=== PATIENT | female | born 2000 | race African-American/Black ===

== ENCOUNTER 2022-03-07 20:52 | Emergency (ER) | payer MEDICAID, SELFPAY ==
[2022-03-07 20:59] VITALS: BP 123/72; PULSE 87; RESP 20; TEMP 36.7; O2SAT 96; BMI 33.8
--- NOTE | 2022-03-07 21:28 | ED_ITS ---
HPI - Extremity Problem General Chief complaint: Unspecified Complaint, Adult Stated complaint: Ankle Swelling Time Seen by Provider: 03/07/22 21:19 History of Present Illness HPI Narrative: Patient is a 21-year-old woman who is 37 weeks with her 2nd baby. She today and yesterday noticed increased swelling over the left ankle with no other findings. She has no calf tenderness no shortness of breath no change in her urination no change in her and her blood pressure is normal. No similar problems previously. She otherwise feels well. Related Data Home Medications Medication Instructions Recorded Confirmed prenat.vits,rosette,[id number] 1 tab PO QDAY 03/05/22 03/07/22 Allergies Allergy/AdvReac Type Severity Reaction Status Date / Time No Known Allergies Allergy Verified 03/04/22 10:41 Review of Systems Status of ROS: Reports: 10 or more systems reviewed and unremarkable except as noted in History and below [facility] Social History Smoking Status: Never smoker Exam Narrative: Exam Narrative: EXAM GENERAL: Patient appears comfortable and well. EYES: No scleral icterus. LYMPH: No supraclavicular or cervical lymphadenopathy. SKIN: Visible skin seen during exam normal or with benign process only. EXT: No dependent lower extremity pedal edema. Trace edema noted around the right ankle no other acute abnormalities. HEART: Regular rate and rhythm with no murmurs, rubs, or gallops. LUNGS: Clear to auscultation bilaterally with no crackles or wheezes. ABD: Soft, non tender, non distended. Gravid uterus noted. PSYCH: Good eye contact, speech is not pressured. Const: Vital Signs, click to edit/add: Vital Signs - 24 hr 03/07/22 20:59 Temperature 98.0 F Pulse Rate [Right Pulse Oximeter] 87 Respiratory Rate 20 Blood Pressure [Le ft Upper Arm] 123/72 Pulse Oximetry 96 Course Vital Signs Vital signs: Initial Vital Signs Temperature 98.0 F 03/07/22 20:59 Temperature Source Temporal Artery Scan 03/07/22 20:59 Pulse Rate 87 03/07/22 20:59 Respiratory Rate 20 03/07/22 20:59 Blood Pressure 123/72 03/07/22 20:59 Blood Pressure Mean 89 03/07/22 20:59 Blood Pressure Position Sitting 07/01/22 20:59 Pulse Oximetry 96 03/07/22 20:59 Oxygen Delivery Method 03/07/22 20:59 Vital Signs Temperature 98.0 F 03/07/22 20:59 Pulse Rate 87 03/07/22 20:59 Respiratory Rate 20 03/07/22 20:59 Blood Pressure 123/72 03/07/22 20:59 Pulse Oximetry 96 03/07/22 20:59 Temperature 98.0 F 03/07/22 20:59 Pulse Rate 87 03/07/22 20:59 Respiratory Rate 20 03/07/22 20:59 Blood Pressure 123/72 03/07/22 20:59 Pulse Oximetry 96 03/07/22 20:59 Discharge Plan Discharge Clinical Impression: Patient Disposition: Home, Self-Care Condition: Stable Instructions: (ED) Additional Instructions: Leg elevation Continue current care Activity Level: No Restrictions Discharge Diet: Regular Prescriptions: No Action prenat.vits,rosette,[id number] Tablet 1 tab PO QDAY 0RF Follow Up/Referrals: Provider,Not a Local [Primary Care Provider] - Stand Alone Forms: MyHealth Info Instructions
[2022-03-07 21:30] VITALS: BP 128/75; PULSE 85; RESP 18; O2SAT 96
[2022-03-07 22:00] VITALS: BP 114/79; PULSE 85; RESP 18; O2SAT 99
[2022-03-07 22:11] VITALS: RESP 16; O2SAT 94
== END 2022-03-07 22:32 | disposition home or self-care (01) ==
LOC: ED 21:32
PROVIDERS: Emergency Provider Internal Medicine
DX: R22.42 Localized swelling, mass and lump, left lower limb (principal); Z3A.34 34 weeks gestation of pregnancy
CPT/HCPCS: 99282; 99283

== ENCOUNTER 2022-03-27 15:18 | Inpatient (IN) | payer MEDICAID, SELFPAY ==
[2022-03-27] VITALS (28 sets, daily range): BP systolic 111–142; BP diastolic 55–90; PULSE 74–123; RESP 16–20; TEMP 36.6–37.1; O2SAT 84–100; BMI 35.9
[2022-03-27] MEDS: AMPICILLIN 2 GM in 0.9 % SODIUM CHLORIDE Mini-bag 100 ML IVPB (14:57)
[2022-03-27] MEDS: LACTATED RINGERS 1000 ML 1,000 ML 125 ML IV (15:00)
[2022-03-27 15:54] LABS: SARS PCR* Negative SARS-CoV-2 (Negative)
--- NOTE | 2022-03-27 15:56 | W.PM.LDBA ---
Subjective History of Present Illness Date Seen: 03/27/22 Narrative: Patient is being admitted to Labor and Delivery for spontaneous onset of labor. She is a 21 year old at 40 1/7 weeks gestation. She began having irregular contractions this morning that woke her up from sleep. She tried going to work but the contractions increased in intensity but remained irregular. She presented to the center at about 1040 am. Initially she was 4/60/-2, on recheck 2 hours later she was 4-5/60/-1 with some bloody show. Patient lives nearby so she was offered to go home. 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 At 245 pm, patient report stronger, more regular contractions and was admitted to Labor and Delivery. Her membranes remain intact. Her full history and physical was dictated by ISAMAR Guan on 03/05. Please see this for details. OB Problem List: 1. Hx of vacuum delivery after 3 hrs of pushing 2. Hx of Granulomatous mastitis. Occasionally has it aspirated Plans to bottle feed 3. Hx of anxiety and depression, sas previously taken Fluoxetine and done therapy. 4. Hx of marijuana use. Positive at transfer visit. Repeat UDS negative. 5. Proteus UTI 11/12/21, <10 K mixed reny on 11/26/21 Repeat 12/05/21: Proteus, resistant to Macrobid. Prescribed cephalexin. LIT UC at 28 week visit - <10,000 gram negative rods, which is what proteus is. 6. Chiari Malformation, headaches prior to 7. Failed 1 hr glucose, 156; scheduling 3 hr OB - H&P: Exam Physical Exam: Vital signs: Temp Pulse Resp BP Pulse Ox 98.8 F 81 20 129/74 98 03/27/22 15:05 03/27/22 15:08 03/27/22 15:05 03/27/22 15:08 03/27/22 15:08 Constitutional: Constitutional: moderate distress (Breathing well through contractions) and cooperative Comments: coping well, calm between contractions. Routine HEENT Exam: Head: Present atraumatic Routine Neck Exam: Neck: Present full ROM Detailed Neck Exam: Thyroids: Comments: supple Routine Respiratory Exam: Respiratory: Present CTA bilaterally Routine Cardiovascular Exam: Cardiovascular: RRR Routine Abdominal Exam: Abdominal: Present soft Comments: Gravid Routine Exam: Perineum Description: Normal and Discharge (bloody show) Detailed Labor and Delivery Exam: Patient Gravid: yes Dilation (cm): 5 Effacement (%): 60 Cervix position: mid Consistency: medium Tachysystole: No Contraction intensity: Moderate Comments: Contractions every 2-5 minutes Fetus (Single): Station: -1 Routine Back/Spine/Pelvis Exam: Back/Spine: full ROM Routine Skin Exam: Present intact Routine Neurological Exam: Present alert and oriented X3 Routine Psychiatric Exam: Present normal affect and normal thought process OB - Problem Based A/P Additional Plan (1) Spontaneous onset of labor: Problem details: 21 yo at 40 1/7 weeks by LMP Patient is coping well with challenges of labor. Labor type: spontaneous, early labor Category 1 FHR pattern. Labor complicated by: GBS + status Status: Acute Plan: Plan: Continue with routine intrapartum cares as ordered, expectant management. Patient encouraged to be active/mobile, hydrate, and rest as needed to promote physiologic labor and . Patient plans for waterbirth, consent in chart. Hep C neg. Analgesic of choice avaliable if patient prefers. GBS prophylaxis per protocol. Anticipate . Delivery/Labor/Induction Plan Plan: expectant management
[2022-03-27 16:17] LABS: Amphetamine Screen Urine Negative (Negative); Barbiturate Screen Urine Negative (Negative); Benzodiazepines Screen Urine Negative (Negative); Cannabinoid Screen Urine Negative (Negative); Cocaine Screen Urine Negative (Negative); Methadone Screen Urine Negative (Negative); Methamphetamines Screen Urine Negative (Negative); Opiate Screen Urine Negative (Negative); Oxycodone Screen Urine Negative (Negative); Phencyclidine Screen Urine Negative (Negative); Tricyclic Antidepressant Urine Negative (Negative)
[2022-03-27] MEDS: AMPICILLIN 1 GM in 0.9 % SODIUM CHLORIDE Mini-bag 100 ML IVPB ×2 (18:58→22:43)
[2022-03-27] MEDS: fentaNYL 100 MCG/2 ML inj IVP (23:00)
--- NOTE | 2022-03-27 23:40 | PM.OBPNL ---
Pain Control Time Seen by Provider: 01:50 Date Seen: 03/28/22 Pain control: epidural Comments: Shakila is a that was admitted yesterday afternoon for spontaneous onset of labor. She initially labored with nitrous and in the tub. After subsequent exams of minimal change with urge to push, AROM was performed. Patient continued to labor in the tub and began to intermittently push with urge. After almost 1.5 hours of intermittent pushing with peak of contraction and urge, patient was examined and found to have cervix present. It was recommended she get out of tub to void and change position. She requested an epidural for pain. Just prior to placement of epidural, RN checked her cervix and found her to be 8/100/0 station w/ asynclitic OP position. After epidural was placed, she had repetative deep variables not improving with fluids or position changes. Cervix was unchanged but baby was LOP. Contractions Monitor mode: External Contraction frequency: 1 (1-4) Contraction pattern: Irregular Contraction intensity: Moderate Pelvic Exam Dilation (cm): 8 Effacement (%): 100 Station: 0 Fetus (Single) Amniotic Membrane Status: AROM status: Category ll Assessment and Plan Assessment: active labor Comments: Continue with routine intrapartum cares as ordered, expectant management. Start amnioinfusion for repetitive variables, 300 bolus followed by continuous rate. Patient encouraged to reposition frequently to promote physiologic labor and . Continue with epidural for analgesic of choice. GBS prophylaxis per protocol. Anticipate .
[2022-03-27] MEDS: ROPIVACAINE 0.2% 100 ml 100 ML 12 MG EPIDURAL (23:48)
[2022-03-27] MEDS: LIDOCAINE 2% (PF) 5 ML VIAL EPIDURAL (23:48)
[2022-03-28] VITALS (37 sets, daily range): BP systolic 92–141; BP diastolic 51–77; PULSE 73–116; RESP 16; TEMP 36.6–37.1; O2SAT 92–98
--- NOTE | 2022-03-28 00:03 | P.ANBPRC_ITS ---
[facility] Medical History (Updated 03/27/22 @ 16:18 by Katelynn Aquino CNM) Granulocytosis Social History Smoking Status: Never smoker Do you use any of these nicotine containing products: None Second hand tobacco smoke exposure: No How often do you have a drink containing alcohol: never How often do you have six or more drinks on one occasion: Never AUDIT-C Alcohol total score: 0 Non-prescribed substance use: denies use Meds Home Medications and Allergies Home Medications Medication Instructions Recorded Confirmed Type prenat.vits,rosette,[id number] 1 tab PO QDAY 03/05/22 03/27/22 History Allergies Allergy/AdvReac Type Severity Reaction Status Date / Time No Known Allergies Allergy Verified 03/18/22 14:44 Results Labs Labs: Laboratory Results - last 24 hr 03/27/22 03/27/22 14:01 15:58 Urine Opiates Screen Negative Ur Oxycodone Screen Negative Urine Methadone Screen Negative Ur Propoxyphene Screen Negative Ur Barbiturates Screen Negative U Tricyclic Antidepress Negative Ur Phencyclidine Scrn Negative Ur Amphetamines Screen Negative U Methamphetamines Scrn Negative U Benzodiazepines Scrn Negative Urine Cocaine Screen Negative U Marijuana (THC) Screen Negative SARS-CoV-2 (PCR) Negative SARS-CoV-2 Vital Signs Vital Signs: Last Vital Signs Temp 98.2 F 03/27/22 18:57 Pulse 110 H 03/27/22 23:59 Resp 18 03/27/22 18:57 BP 111/55 L 03/27/22 23:59 Pulse Ox 100 03/27/22 23:41 Weight: 89.04 kg Height: 157.48 cm Anesthesia Procedures Epidural Insertion Patient Location: OB Start Time: 23:10 Stop Time: 00:04 Start Date: 03/27/22 Stop Date: 03/28/22 Reason for Block: primary anesthetic Patient Position: sitting Performed By: Heron Watson Preanesthetic Checklist: IV checked, risks and benefits discussed, surgical consent, monitors and equipment checked, pre-op evaluation, timeout performed and anesthesia consent Prep: chlorhexidine gluconate Monitoring: blood pressure monitoring, secured entrance monitor, continuous pulse oximetry and heart rate Approach: midline Vertebral Space: lumbar (1-5) Epidural Technique: COLIN saline Needle Type: Tuohy needle Injection Technique: continuous shot Needle gauge: 17 Needle Length (cm): 10 cm Needle Insertion Depth (cm): 8 Catheter Gauge: 19 Catheter Type: multi-orifice Catheter at skin depth (cm): 12 Test Dose Result: negative and lidocaine 1.5% with epinephrine 1 to 200,000 Events: other
[2022-03-28] MEDS: LACTATED RINGERS 1000 ML 1,000 ML IV ×2 (03:53→04:06)
[2022-03-28] MEDS: AMPICILLIN 1 GM in 0.9 % SODIUM CHLORIDE Mini-bag 100 ML IVPB (04:06)
[2022-03-28] MEDS: OXYTOCIN 30 unit/500 ML in NS 30 UNIT/500 ML BAG 325 UNIT IVPB (05:04)
--- NOTE | 2022-03-28 05:30 | PM.OBPRCVD ---
Procedure Delivery date: 03/28/22 Procedure Done: Global Events: Other (GBS +) Intrapartal Events: Mod/Heavy Meconium Fluid (clear during labor, moderate meconium with delivery) Delivery augmentation: rupture of membranes Delivery monitor: external FHT, external uterine and internal uterine Route of delivery: Laceration description: None Estimated blood loss (mL): 400 Anesthesia type: Epidural Disposition: floor Narrative: The patient is a 21 year-old now P2022 admitted on 03/27/2022 at 40 Weeks, 1 Days gestation for spontaneous onset of labor.? Cervical exam on admission was 5 cm/60 % effaced/-1 station with membranes intact in vertex presentation.? Contractions were every 5+ minutes.? heart rate demonstrated a category 1 tracing.? AROM occurred at 2046 with clear fluid. ? Pitocin:? AMTSL only ? Labor onset:?03/27/221909 ? Complete:? 03/280 ? Pushing:?410 ? heart tones during second stage were reassuring throughout with occasional variable with good return to baseline and variability. ? Patient labor spontaneously, recurrent variable decelerations with good recovery. Tracing improved with amnioinfusion and positioning. AROM noted at 2046 AM with clear fluid. Patient complete at 0400 AM and pushing at 0410. of a viable female at 0450 AM. Vertex delivered OA. No nuchal cord or shoulder. Body delivered with gentle traction and without incident. Moderate meconium with delivery. passed to mothers abdomen with a vigorous cry. Cord was clamped and cut at > 5 minutes. APGARS were 9 at one minute and 9 at five minutes respectively. Mouth was bulb suctioned. Intact placenta with a 3 vessel cord delivered spontaneous at 0510AM. Fundus firm. Intact perineum. QBL 400 cc. Mother and baby stable; mother plans to bottlefeed. Infant weight pending. ? Placenta delivered spontaneously and complete at 0510 with a 3 vessel cord. ? Mother and infant were stable after delivery. ? Lacerations:? Intact ? Blood loss: 400 mL. Blood loss measurement type: QBL ? Sponge and needles counts are correct. [place] Infant Gender: Female presentation: vertex Placental Delivery Description: Spontaneous Cord Description: 3 Vessels OB Vag Delivery Procedures Additional Procedures ECV: No Cook Catheter Insertion: No NST: No D&C: No Laceration Repair: No Tubal Ligation : No Other: Yes (Amnioinfusion)
[2022-03-28] MEDS: DOCUSATE SODIUM 100 MG CAPSULE PO (12:12)
[2022-03-28] MEDS: ACETAMINOPHEN 500 MG TABLET 1000 MG PO (20:32)
[2022-03-29 01:33] VITALS: BP 114/76; PULSE 69; RESP 16; TEMP 36.6; O2SAT 98
[2022-03-29 05:37] VITALS: BP 113/79; PULSE 88; RESP 16; TEMP 36.8; O2SAT 96
[2022-03-29 07:15] VITALS: BP 138/90; PULSE 88; RESP 20; O2SAT 98
[2022-03-29] MEDS: IBUPROFEN 600 MG TABLET PO (07:20)
[2022-03-29] MEDS: MAG HYDROX/ALUMINUM HYD/SIMETH 30 ML ORAL.SUSP PO (07:28)
[2022-03-29 08:06] LABS: Hematocrit 30.5 % (33.0-51.0); Hemoglobin* 9.5 gm/dL (12.0-16.0); Mean Corpuscular HGB Conc 31 gm/dL (32-36); Mean Corpuscular Hemoglobin 24 pg (26-34); Mean Corpuscular Volume 76 fL (80-100); Platelet Count* 241 K/uL (140-440); White Blood Count* 13.34 K/uL (4.50-11.00)
--- NOTE | 2022-03-29 08:09 | PM.OBDSVD1 ---
DS: Providers Provider Date Seen: 03/29/22 Date of admission: 03/27/22 15:18 Primary care physician: Not a Local Provider Admitting Clinician: Katelynn Aquino CNM Consults: 03/27/22 14:11 Consult to Green Building Energy Engineer [CONS] Routine Comment: Reason for Consult:: Substance Abuse Screening Attending Physician on discharge: Katelynn Aquino CNM Date of Discharge: 03/29/22 DS: Diagnosis Discharge Diagnosis (1) care and examination immediately after delivery: Status: Acute (2) Status post vaginal delivery: Status: Acute (3) Gestational hypertension: Status: Acute Problem details: Noted in labor and (4) anemia: Status: Acute Exam Const: Vital Signs, click to edit/add: Vital Signs - 24 hr 03/28/22 12:00 03/28/22 16:46 03/28/22 20:28 Temperature 98.7 F 98.8 F 97.9 F Pulse Rate [Left P ulse Oximeter] 95 84 88 Respiratory Rate 16 16 16 Blood Pressure [Ri ght Arm] 119/72 131/70 122/77 Pulse Oximetry 98 97 96 03/29/22 01:33 03/29/22 05:37 Temperature 97.9 F 98.2 F Pulse Rate [Left P ulse Oximeter] 69 88 Respiratory Rate 16 16 Blood Pressure [Ri ght Arm] 114/76 113/79 Pulse Oximetry 98 96 Temperature 98.2 F 03/29/22 05:37 Temperature Source Oral 03/29/22 05:37 Pulse Rate 88 03/29/22 07:15 Respiratory Rate 20 03/29/22 07:15 Respiratory Effort Spontaneous 03/29/22 07:15 Respiratory Depth Normal 03/29/22 07:15 Respiratory Patter n 03/29/22 07:15 Blood Pressure 138/90 H 03/29/22 07:15 Blood Pressure Danielle n 106 03/29/22 07:15 Blood Pressure Pos ition Semi-Fowlers 03/29/22 07:15 Pulse Oximetry 98 03/29/22 07:15 Oxygen Delivery Me thod 03/29/22 07:15 WBC 13.34 K/uL (4.50- 11.00) H 03/29/22 07:58 RBC 4.00 m/uL (4.00-5 .20) 03/29/22 07:58 Hgb 9.5 gm/dL (12.0-1 6.0) L 03/29/22 07:58 Hct 30.5 % (33.0-51.0 ) L 03/29/22 07:58 MCV 76 fL (80-100) L 03/29/22 07:58 MCH 24 pg (26-34) L 03/29/22 07:58 MCHC 31 gm/dL (32-36) L 03/29/22 07:58 Plt Count 241 K/uL (140-440 ) 03/29/22 07:58 Urine Opiates Scre en Negative (Negati ve) 03/27/22 15:58 Ur Oxycodone Scree n Negative (Negati ve) 03/27/22 15:58 Urine Methadone Sc reen Negative (Negati ve) 03/27/22 15:58 Ur Propoxyphene Sc reen Negative (Negati ve) 03/27/22 15:58 Ur Barbiturates Sc reen Negative (Negati ve) 03/27/22 15:58 U Tricyclic Antide press Negative (Negati ve) 03/27/22 15:58 Ur Phencyclidine S crn Negative (Negati ve) 03/27/22 15:58 Ur Amphetamines Sc reen Negative (Negati ve) 03/27/22 15:58 U Methamphetamines Scrn Negative (Negati ve) 03/27/22 15:58 U Benzodiazepines Scrn Negative (Negati ve) 03/27/22 15:58 Urine Cocaine Scre en Negative (Negati ve) 03/27/22 15:58 U Marijuana (THC) Screen Negative (Negati ve) 03/27/22 15:58 SARS-CoV-2 (PCR) Negative SARS-CoV -2 (Negative) 03/27/22 14:01 Documenting provider has reviewed patient's vital signs: yes Common normals: no apparent distress, oriented x3, no limitations, healthy appearing, alert and well nourished HENMT: Common normals: normocephalic Head and scalp: normocephalic Eye: Common normals: PERRL Pupil: PERRL Neck & C-Spine: Common normals: full ROM and supple Chest: Common normals: inspection of chest normal Other: Breast exam: deferred Resp: Common normals: normal respiratory effort, no retractions and clear to auscultation bilaterally Auscultation: clear to auscultation bilaterally Cardio: Common normals: regular rate and regular rhythm Rate: regular rate Rhythm: regular rhythm GI: Common normals: Normal to inspection, nondistended, normoactive bowel sounds present, soft to palpation and non-tender Palpation: soft and tender Details: other (upper medial abdomen) : OB/external & speculum: Yes deferred Uterus palpation: other (The uterine fundus is involuting. ) Back & Pelvis: Common normals: thoracic and lumbar spine normal to inspection and thoraco-lumbar ROM normal Extremity: Common normals: normal to inspection and full ROM Neuro: Common normals: oriented x3, moves all extremities and gait normal Sensorium/orientation: alert Psych: Common normals: mental status grossly normal, thought process normal, affect normal, speech normal and activity/motor behavior normal Speech: normal speech Thought process: normal thought process Skin: Common normals: no rashes or lesions noted General skin exam: no rashes or lesions noted OB - DS: Summary Hospital Course Hospital Course: The patient is a 21 year old G 4 P 2021 at 40.2 weeks gestation that was admitted to the Center on 03/27/22 for spontaneous onset of labor. She had an uncomplicated vaginal delivery. She delivered a viable female . She is bottle feeding. the patient has done well. This morning she began having some upper abdominal pain, central. She reports it feels like gas pains or possible severe heartburn. She did not eat much during labor but reports she ate a bunch of food yesterday. She had a small BM this morning. Maalox given by RN and has noted some mild improvement shortly after. Does prefer to go home today, aware she should stay if pain does not improve. Labs drawn due to multiple elevated blood pressures during labor and now one for pre-e work-up. Patient encouraged to hydrate and ambulate today to encourage GI movement. Peripartum Data Infant delivery method: Vaginal Laceration description: None complications: none Needles Infant Gender: Female Status at Discharge Functional status at discharge: independent ambulation Overall status at discharge: patient is progressing back to baseline Time Spent with Patient Time attestation: Total time spent providing and/or coordinating discharge services: Time spent: Less than 30 minutes Discharge Plan Discharge Disposition: Home, Self-Care Date of Admission: 03/27/22 15:18 Attending Provider on Discharge: Katelynn Aquino Primary Care Provider: Provider,Not a Local Condition: Stable Anticipated Discharge Date/Time: 03/29/22 12:30 Discharge Medications: New acetaminophen 500 mg Tablet 1,000 mg PO Q6H PRN (Reason: pain/fever) Qty: 0 0RF docusate sodium 100 mg Capsule 100 mg PO DAILY Qty: 100 0RF ibuprofen 600 mg Tablet 600 mg PO Q6H PRNQty: 60 0RF ferrous sulfate [iron] 325 mg (65 mg iron) tablet 325 mg PO DAILY Qty: 60 1RF Continued prenat.vits,rosette,[id number] Tablet 1 tab PO QDAY 0RF Discharge Orders: Discharge Order (Routine); Ordered 03/29/22 Ordered By: Katelynn Aquino Patient Education: OB Vaginal/Bottle Feeding Activity Restrictions/Additional Instructions: Discharge instructions were reviewed with the patient including signs and symptoms of infection and home going medications. Start iron supplement for low hemoglobin post . Lifting Restrictions: n/a Do not drive while taking narcotic pain meds. Off Work or School for 6 weeks. Symptoms to report to doctor: -Bleeding that saturates more than one pad per hour ?-Passing clots larger than the size of a golf ball ?-Pain not relieved by prescribed medication ?-Fever above 100.4 degrees Fahrenheit ?-A foul vaginal odor ?-Difficulty in emotions, mood and functions ?-Thoughts of hurting yourself and/or ?-Painful, reddened area in your breast ?-Any drainage, redness or tenderness in your IV/epidural site ?-Severe headache that doesn't improve after taking medications ?-Changes in vision, including temporary loss of vision, blurred vision, and/or light sensitivity ?-Upper abdominal pain (usually under ribs on the right side) ?-Decrease in urination or painful, frequent urinating ?-Chest pain ?-Shortness of breath ?-Tenderness or pain with redness and/swelling in the calf(s) of your leg Follow Up with clinic at 2 and 6 weeks . consultation services are available to all mothers and babies for the first year after delivery.? To make an appointment, please call [phone]. Activity Level: No Restrictions Discharge Diet: Regular Follow Up Appointments: [facility] [Provider Group] (at 2 weeks and 6 weeks ) Forms: MyHealth Info Instructions
[2022-03-29 08:19] LABS: Slide Review Reflex No
[2022-03-29 08:23] LABS: Creatinine* 0.7 mg/dL (0.5-1.5); Estimated Glomerular Filt Rate 125 ml/min
[2022-03-29 08:24] LABS: Alanine Aminotransferase* 11 U/L (4-35); Aspartate Amino Transferase* 25 U/L (12-35); Blood Urea Nitrogen* 9 mg/dL (5-24)
[2022-03-29] MEDS: DOCUSATE SODIUM 100 MG CAPSULE PO (09:11)
[2022-03-29 12:00] VITALS: BP 117/78
== END 2022-03-29 12:43 | disposition home or self-care (01) | DRG 807 ==
LOC: OB OUT 15:19 → OB 15:19
PROVIDERS: Admitting Provider Advanced Practice Midwife; Visit Provider Advanced Practice Midwife
DX: O99.824 Streptococcus B carrier state complicating childbirth (principal); Z37.0 Single live birth; O99.344 Other mental disorders complicating childbirth; F32.A Depression, unspecified; F41.9 Anxiety disorder, unspecified; O77.0 Labor and delivery complicated by meconium in amniotic fluid; O13.5 Gestational [pregnancy-induced] hypertension without significant proteinuria, complicating the puerperium; O90.81 Anemia of the puerperium; D64.9 Anemia, unspecified; Z3A.40 40 weeks gestation of pregnancy
CPT/HCPCS: 01967; 36415; 80306; 82565; 84450; 84460; 84520; 85027; 87635; 99211; A9270; J0290; J2795; J3010; J7120

== ENCOUNTER 2022-05-15 12:09 | Outpatient (CLI) | payer MEDICAID, SELFPAY | END 2022-05-15 12:10 | disposition home or self-care (01) | LOC: NFLDREF 05-23 09:27 | PROVIDERS: Visit Provider Advanced Practice Midwife | DX: Z39.2 Encounter for routine postpartum follow-up (principal) | CPT/HCPCS: 87086; 87186 ==

== ENCOUNTER 2022-06-17 08:21 | Outpatient (CLI) | payer MEDICAID, SELFPAY | END 2022-06-17 08:22 | disposition home or self-care (01) | PROVIDERS: Visit Provider Obstetrics & Gynecology | DX: N39.0 Urinary tract infection, site not specified (principal) | CPT/HCPCS: 87086; 87491; 87591 ==

== ENCOUNTER 2022-12-10 09:27 | Outpatient (CLI) | payer MEDICAID, SELFPAY ==
[2022-12-10 09:56] LABS: Clue Cells No Clue Cells Seen (None Seen); Trichomonas No Trichomonas Seen (None Seen); Yeast No Yeast Seen (None Seen)
[2022-12-10 12:37] LABS: Chlamydia DNA Amplified* NOT DETECTED (No Detected); GC DNA Amplified* NOT DETECTED (No Detected)
== END 2022-12-10 09:28 | disposition home or self-care (01) ==
PROVIDERS: Visit Provider Obstetrics & Gynecology
DX: R10.2 Pelvic and perineal pain (principal); N89.8 Other specified noninflammatory disorders of vagina
CPT/HCPCS: 0353U; 87086; 87186; 87210; 87491; 87591

== ENCOUNTER 2023-04-06 08:16 | Outpatient (CLI) | payer MEDICAID, SELFPAY ==
--- NOTE | 2023-04-06 08:15 | CRLHL7_ITS ---
For Patients: As a result of the Century Cures Act, medical imaging exams and procedure reports are released immediately into your electronic medical record. You may view this report before your referring provider. If you have questions, please contact your health care provider. INDICATION: First trimester scan, establish dates. COMPARISON: None. TECHNIQUE: Real-time contreras-scale imaging of the pelvis was performed. FINDINGS: Sonographic imaging demonstrates a single living intrauterine gestation. The embryo demonstrates a regular cardiac rate measuring 166 beats per minute. The embryo`s crown-rump length measurement of 3.2 cm corresponds to a gestational age of 10 weeks 1 day with a sonographic due date of 11/01/2023. There is a normal-appearing yolk sac. There are no gross abnormalities noted within the embryo at this early state of development. The gestational sac has a normal appearance. There is no evidence of a perigestational hemorrhage. The amount of fluid within the sac appears appropriate for gestational age. The cervix is closed. The myometrium appears normal. The ovaries are of normal size. Corpus luteal cyst right ovary. There are no suspicious fluid collections noted in the cul-de-sac. IMPRESSION: Normal first trimester OB ultrasound exam. Gestational age calculated at 10 weeks 1 day with a sonographic due date of 11/01/2023. Dictated by Magdy Rodriguez MD @ 04/06/2023 9:48:00 AM (Electronically Signed)
== END 2023-04-06 08:17 | disposition home or self-care (01) ==
LOC: US 08:17
PROVIDERS: Visit Provider Advanced Practice Midwife
DX: Z34.91 Encounter for supervision of normal pregnancy, unspecified, first trimester (principal); Z3A.10 10 weeks gestation of pregnancy
CPT/HCPCS: 76817

== ENCOUNTER 2023-05-04 09:33 | Outpatient (CLI) | payer MEDICAID, SELFPAY ==
[2023-05-04 12:54] LABS: Chlamydia DNA Amplified* NOT DETECTED (No Detected); GC DNA Amplified* NOT DETECTED (No Detected)
== END 2023-05-04 09:34 | disposition home or self-care (01) ==
PROVIDERS: Visit Provider Advanced Practice Midwife
DX: Z34.81 Encounter for supervision of other normal pregnancy, first trimester (principal)
CPT/HCPCS: 80306; 86592; 86703; 86762; 86787; 86803; 86850; 86900; 86901; 87086; 87340; 87491; 87591

== ENCOUNTER 2023-06-25 15:25 | Outpatient (CLI) | payer MEDICAID, SELFPAY | END 2023-06-25 15:26 | disposition home or self-care (01) | LOC: NFLDREF 06-28 17:56 | PROVIDERS: Visit Provider Advanced Practice Midwife | DX: R30.9 Painful micturition, unspecified (principal) | CPT/HCPCS: 87086; 87186 ==

== ENCOUNTER 2023-07-01 07:30 | Outpatient (CLI) | payer MEDICAID, SELFPAY ==
--- NOTE | 2023-07-01 07:15 | CRLHL7_ITS ---
For Patients: As a result of the Century Cures Act, medical imaging exams and procedure reports are released immediately into your electronic medical record. You may view this report before your referring provider. If you have questions, please contact your health care provider. INDICATION: Evaluate anatomy. COMPARISON: 04/06/2023 TECHNIQUE: Real time contreras scale imaging of the fetus was performed as well as color Doppler analysis of the umbilical vessels. FINDINGS: Sonographic imaging demonstrates a single living intrauterine gestation. Fetus demonstrates a regular cardiac rate of 141 beats per minute. Fetus has a breech position. The placenta lies anteriorly without evidence of placenta previa. The placental edge is located 9 cm from the internal cervical os. Amniotic fluid volume appears normal. Single deepest vertical pocket: 3.3 cm. The cervix is closed and measures 4.8 cm in length. The composite ultrasound gestational age is calculated at 22 weeks 1 day with an estimated sonographic due date of 11/03/2023. The estimated weight is 459 grams which lies at the 31st %. The following biometric measurements were obtained: Biparietal diameter: 5.4 cm/22 weeks 2 days 53rd% Head circumference: 20.5 cm/22 weeks 4 days 56th% Abdominal circumference: 16.2 cm/21 weeks 2 days 17th% Femur length: 3.9 cm/22 weeks 3 days 49th% The HC/AC ratio measures: 1.26 range (1.05-1.23) On anatomic survey, there is a normal appearance of the cerebral ventricles, cavum septi pellucidi, cisterna magna and cerebellum. The nose, lips, and facial profile appear normal. The cervical, thoracic and lumbar spine are well visualized and appear normal. There is a normal four-chamber heart view and the left and right ventricular outflow tracts appear normal. The diaphragm and stomach appear normal. The kidneys and bladder also appear normal. There is a normal three-vessel cord and cord insertion site. The four extremities appear normal. IMPRESSION: Normal OB ultrasound exam with concordance of clinical and sonographic dating. No intrinsic abnormalities noted on anatomic survey. Dictated by Magdy Rodriguez MD @ 07/03/2023 6:07:48 AM (Electronically Signed)
== END 2023-07-01 07:31 | disposition home or self-care (01) ==
LOC: US 07:31
PROVIDERS: Visit Provider Advanced Practice Midwife
DX: Z34.92 Encounter for supervision of normal pregnancy, unspecified, second trimester (principal); Z3A.21 21 weeks gestation of pregnancy
CPT/HCPCS: 76805

== ENCOUNTER 2023-08-13 10:10 | Outpatient (CLI) | payer MEDICAID, SELFPAY | END 2023-08-13 10:11 | disposition home or self-care (01) | LOC: NFLDREF 10:11 | PROVIDERS: Visit Provider Advanced Practice Midwife | DX: O23.42 Unspecified infection of urinary tract in pregnancy, second trimester (principal); Z11.3 Encounter for screening for infections with a predominantly sexual mode of transmission | CPT/HCPCS: 86592; 87086 ==

== ENCOUNTER 2023-08-17 08:59 | Outpatient (CLI) | payer MEDICAID, SELFPAY ==
[2023-08-17] VITALS (21 sets, daily range): BP systolic 110–121; BP diastolic 54–68; PULSE 93–112; RESP 20; TEMP 36.8; O2SAT 97–98
[2023-08-17 10:01] LABS: Hematocrit 33.5 % (33.0-51.0); Hemoglobin* 11.3 gm/dL (12.0-16.0); Mean Corpuscular HGB Conc 34 gm/dL (32-36); Mean Corpuscular Hemoglobin 30 pg (26-34); Mean Corpuscular Volume 90 fL (80-100); Platelet Count* 211 K/uL (140-440); Red Blood Count 3.72 m/uL (4.00-5.20); White Blood Count* 6.62 K/uL (4.50-11.00)
[2023-08-17 10:03] LABS: Slide Review Reflex No
[2023-08-17] MEDS: ACETAMINOPHEN 500 MG TABLET 1000 MG PO (10:10)
[2023-08-17 10:18] LABS: Alanine Aminotransferase* 16 U/L (4-35); Aspartate Amino Transferase* 27 U/L (12-35); Blood Urea Nitrogen* 3 mg/dL (5-24); Creatinine* 0.4 mg/dL (0.5-1.5); Estimated Glomerular Filt Rate 143 ml/min
[2023-08-17 10:29] LABS: Total Protein Urine 21 mg/dL
[2023-08-17 10:30] LABS: Creatinine Urine 42.2 mg/dL
[2023-08-17 10:36] LABS: PCR FLU A POSITIVE PCR FLU A (Negative); PCR FLU B Negative PCR FLU B (Negative); PCR RSV Negative PCR RSV (Negative)
[2023-08-17 10:37] LABS: SARS PCR* Negative SARS-CoV-2 (Negative)
--- NOTE | 2023-08-17 12:45 | PC.OBNST ---
NST Note NST Note Start: 08/17/23 09:08 Freq: ONCE Status: Discharge Protocol: Document 08/17/23 11:46 SURI (Rec: 08/17/23 12:19 SURI [id number]) NST Note 5 Para (# of births) 2 EDC 11/03/23 Gestational Age In Weeks & Days 28 Weeks & 6 Days Patient Presented with Complaint(s) of Headache,Other Other Complaints Headache and RUQ pain unrelieved with Tylenol. Cold /flu symptoms. Reactive Yes Appropriate for Gestational Age Yes ARASELI Nole, RNC Date 08/17/23 Reactive Yes Appropriate for Gestational Age Yes ARASELI Sullivan, RNC Date 08/17/23 OB NST charge Yes Complete NST Note via Write Note Yes The provider's electronic signature indicates the NST is reactive/appropriate for gestational age. *Note to provider: If an addendum is required, open the patient's chart and click on the note under the Nurse/Allied Health tab.
--- NOTE | 2023-08-17 13:01 | PM.OBLDTN ---
OB - Triage/Final Diagnosis Visit Information Date Seen: 08/17/23 Date of evaluation: 08/17/23 Narrative: The patient is a 22 year old 5 para 2 at 28.6 weeks gestation by LMP, who called earlier today with a headache that was not relieved with rest, hydration and Tylenol. She presents to triage with this plus generally not feeling well since Thursday. Blood pressures on admission and throughout her stay were normal. Preeclampsia labs were drawn as well as testing her for Flu and covid. She was found to be positive for influenza A. She was sent a prescription for Tamiflu was sent and she was encourage to use OTC for symptom relief. She was given the OTC safe in handout and feels that she is able to hydrate on her own. She was given precautions of when to return. She denies contractions or leaking fluid and is appreciating good movement. Reason for evaluation: other Evaluation Laboratory results: Laboratory Tests 08/17/23 08/17/23 Range/Units Unknown 09:50 WBC 6.62 (4.50-11.00) K/uL RBC 3.72 L (4.00-5.20) m/uL Hgb 11.3 L (12.0-16.0) gm/dL Hct 33.5 (33.0-51.0) % MCV 90 (80-100) fL MCH 30 (26-34) pg MCHC 34 (32-36) gm/dL Plt Count 211 (140-440) K/uL BUN 3 L (5-24) mg/dL Creatinine 0.4 L (0.5-1.5) mg/dL Estimated GFR 143 ml/min AST 27 (12-35) U/L ALT 16 (4-35) U/L Urine Creatinine 42.2 mg/dL Protein/Creatinin Ratio 0.40 H (0-0.19) Urine Total Protein 21 mg/dL SARS-CoV-2 (PCR) Negative SARS-CoV-2 (Negative) Influenza Type A (PCR) POSITIVE PCR FLU A A (Negative) Influenza Type B (PCR) Negative PCR FLU B (Negative) RSV (PCR) Negative PCR RSV (Negative) Vital signs: Vital Signs - 24 hr 08/17/23 09:14 08/17/23 09:30 08/17/23 09:44 Temperature 98.2 F Pulse Rate 100 93 102 H Respiratory Rate 20 Blood Pressure 120/65 121/65 113/64 Pulse Oximetry 08/17/23 09:59 08/17/23 10:14 08/17/23 10:29 Temperature Pulse Rate 103 H 111 H 109 H Respiratory Rate Blood Pressure 115/65 110/67 117/68 Pulse Oximetry 08/17/23 10:44 08/17/23 10:50 08/17/23 10:55 Temperature Pulse Rate 103 H Respiratory Rate Blood Pressure 118/66 Pulse Oximetry 98 98 08/17/23 10:59 08/17/23 11:00 08/17/23 11:05 Temperature Pulse Rate 107 H Respiratory Rate Blood Pressure 120/54 L Pulse Oximetry 98 98 08/17/23 11:10 08/17/23 11:14 08/17/23 11:15 Temperature Pulse Rate 105 H Respiratory Rate Blood Pressure 113/58 L Pulse Oximetry 98 98 08/17/23 11:20 08/17/23 11:25 08/17/23 11:29 Temperature Pulse Rate 96 Respiratory Rate Blood Pressure 113/58 L Pulse Oximetry 97 98 08/17/23 11:30 08/17/23 11:35 08/17/23 11:40 Temperature Pulse Rate Respiratory Rate Blood Pressure Pulse Oximetry 98 97 97 Final Diagnosis (1) Influenza A: Status: Acute (2) : Status: Resolved
== END 2023-08-17 12:40 | disposition home or self-care (01) ==
LOC: OB OUT 09:00 → OB 09:00
PROVIDERS: Visit Provider Advanced Practice Midwife
DX: Z34.93 Encounter for supervision of normal pregnancy, unspecified, third trimester (principal); J10.1 Influenza due to other identified influenza virus with other respiratory manifestations; Z3A.28 28 weeks gestation of pregnancy
CPT/HCPCS: 36415; 59025; 82565; 82570; 84156; 84450; 84460; 84520; 85027; 87631; 99213; A9270

== ENCOUNTER 2023-08-26 08:05 | Outpatient (CLI) | payer MEDICAID, SELFPAY | END 2023-08-26 08:06 | disposition home or self-care (01) | LOC: NFLDREF 09:23 | PROVIDERS: Visit Provider Advanced Practice Midwife | DX: R73.09 Other abnormal glucose (principal) | CPT/HCPCS: 82951; 82952 ==

== ENCOUNTER 2023-08-28 21:47 | Outpatient (CLI) | payer MEDICAID, SELFPAY | END 2023-08-28 21:48 | disposition home or self-care (01) | PROVIDERS: Visit Provider Advanced Practice Midwife | DX: O23.40 Unspecified infection of urinary tract in pregnancy, unspecified trimester (principal); R80.9 Proteinuria, unspecified | CPT/HCPCS: 82570; 84156 ==

== ENCOUNTER 2023-10-08 14:46 | Outpatient (CLI) | payer MEDICAID, SELFPAY | END 2023-10-08 14:47 | disposition home or self-care (01) | LOC: NFLDREF 14:47 | PROVIDERS: Visit Provider Advanced Practice Midwife | DX: Z34.83 Encounter for supervision of other normal pregnancy, third trimester (principal); F12.90 Cannabis use, unspecified, uncomplicated | CPT/HCPCS: 80306; 87081; 87653 ==

== ENCOUNTER 2023-11-04 07:08 | Inpatient (IN) | payer MEDICAID, SELFPAY ==
[2023-11-04] VITALS (71 sets, daily range): BP systolic 103–131; BP diastolic 54–82; PULSE 67–115; RESP 16; TEMP 36.3–36.8; O2SAT 80–100; BMI 33.0
--- NOTE | 2023-11-04 07:26 | W.PM.LDBA ---
Documented by User: Tamika Guan, ISAMAR 11/04/23 07:46 Subjective History of Present Illness Specific Issues/Plans SO: Severino H&P done by Bryanna Garza on 10/15/23 1. Hx of vacuum delivery after 3 hrs of pushing 2. Hx of Granulomatous mastitis. Occasionally has it aspirated 3. Hx of anxiety and depression, has previously taken fluoxetine and done therapy. Nothing currently. 4. Hx of marijuana use. Random UDS: + THC 5. Chiari Malformation, headaches prior to 6. Hx gestational hypertension last . Will start ASA. 7. Positive for marijuana at NOB at 17 weeks (2nd trimester). Repeat 36 weeks (3rd trimester): negative 8. UTI in treated 06/26 UC on 08/13-neg 9. Elevated PC ratio in triage. Also diagnosed with the flu at that time. Will do 24 hour urine:normal, P/C ratio 0.0 10. Failed 1 hour GTT, 3 hr WNL COVID: booster 07/01 Flu: given 07/01 TDAP: 08/27/2023 32wk mental health: 09/10/2023 RSV: 10/08/23 OB - Problem Based A/P Additional Plan (1) Pain during labor: Status: Acute Plan ASSESSMENT:? G[]P[] at [] weeks gestation? GBS []? Uncomplicated ? Elevated BP on admit? Postterm IOL? ?? PLAN:? 1. [Antibiotic prophylaxis treatment per protocol]? 2. Reviewed risks and benefits of IOL with pitocin vs cytotec. Pt prefers cytotec. Pitocin to follow if needed.? 3. Desires water . Consent signed. Hep C negative.? 4. Candidate for analgesia of choice. Planning unmedicated .? 5. Monitor blood pressures. Consider labs if continue to be elevated.? 6. Anticipate ? 7. Expectant management at this time.? 8. IV and monitoring plan? ? OB Exam Physical Exam Narrative: Psychiatric:? Alert and oriented x3? HEENT:? Normocephalic, atraumatic? Neck:? Supple without adenopathy or thyromegaly? Lungs:? Clear to auscultation bilaterally? Heart:? Regular rate and rhythm, no murmur, rub or gallop? Abdomen:? Soft, nontender, and gravid? Extremities:? No edema or erythema? Documented by User: Marissa Justin 11/04/23 07:46 Subjective History of Present Illness Time Seen by Provider: 07:26 Date Seen: 11/04/23 Narrative: Patient is being admitted to Labor and Delivery with regular painful contractions since 4 am this morning. She is breathing through them and requesting for epidural. She is a 23 year old at 40.1 weeks gestation. Her full history and physical was dictated by Bryanna Garza CNM on 10/15/2023. Please see this for details. She is gaurav every 3-4 min. FHT is category II with 125 baseline, moderate variability and occasional variables. There is also audible irregular heart beat. Planning for peds to attend delivery. No hx of heart concerns in the records. UDS is colllected on admission for hx of drug use in preg. GBS is negative. Type and screen is also collected. Specific Issues/Plans SO: Severino H&P done by Bryanna Garza on 10/15/23 1. Hx of vacuum delivery after 3 hrs of pushing 2. Hx of Granulomatous mastitis. Occasionally has it aspirated 3. Hx of anxiety and depression, has previously taken fluoxetine and done therapy. Nothing currently. 4. Hx of marijuana use. Random UDS: + THC 5. Chiari Malformation, headaches prior to 6. Hx gestational hypertension last . Will start ASA. 7. Positive for marijuana at NOB at 17 weeks (2nd trimester). Repeat 36 weeks (3rd trimester): negative 8. UTI in treated 06/26 UC on 08/13-neg 9. Elevated PC ratio in triage. Also diagnosed with the flu at that time. Will do 24 hour urine:normal, P/C ratio 0.0 10. Failed 1 hour GTT, 3 hr WNL COVID: booster 07/01 Flu: given 07/01 TDAP: 08/27/2023 32wk mental health: 09/10/2023 RSV: 10/08/23 OB - Problem Based A/P Additional Plan (1) Pain during labor: Status: Acute Plan ASSESSMENT:? at 40.1 weeks gestation Active labor FHT- Category II tracing with audible irregular heart beat Membrane intact ? GBS Negative Uncomplicated ? ?? PLAN:? 1. Requesting Epidural ? 2. Collect UDS 3 Anticipate ? 4. Expectant management at this time.? 5. Continuous monitoring for concern for heart irregularity 6. Plan to have Peds attend [facility] Delivery/Labor/Induction Plan Plan: expectant management OB Result Labs Blood Type: A (+) positive GBS Status: negative OB Exam Physical Exam Vital signs: Pulse BP Pulse Ox 80 106/59 L 100 11/04/23 06:41 11/04/23 06:41 11/04/23 07:04
[2023-11-04] MEDS: LACTATED RINGERS 1000 ML 1,000 ML 1200 ML IV (07:28)
[2023-11-04 07:45] LABS: Basophils Percent Auto 0.1 % (0.0-3.0); Eosinophils Percent Auto 0.2 % (0.0-7.0); Hemoglobin* 10.7 gm/dL (12.0-16.0); Immature Granulocytes Pct Auto 0.4 %; Lymphocytes Percent Auto 13.5 % (20-44); Mean Corpuscular HGB Conc 32 gm/dL (32-36); Mean Corpuscular Hemoglobin 25 pg (26-34); Mean Corpuscular Volume 79 fL (80-100); Monocytes Percent Auto 6.6 % (0.0-11.0); Neutrophils Percent Auto 79.2 % (42.0-72.0); Platelet Count* 250 K/uL (140-440); Red Blood Count 4.28 m/uL (4.00-5.20); White Blood Count* 14.19 K/uL (4.50-11.00)
[2023-11-04 07:48] LABS: Slide Review Reflex No
[2023-11-04] MEDS: ROPIVACAINE 0.2% 100 ml 100 ML 12 MG EPIDURAL (08:12)
--- NOTE | 2023-11-04 08:16 | P.ANBPRC_ITS ---
[facility] Medical History Anxiety ?F41.9 - Anxiety disorder, unspecified (ICD-10) Depression ?F32.A - Depression, unspecified (ICD-10) Chiari malformation anemia ?O90.81 - Anemia of the puerperium (ICD-10) Gestational hypertension ?O13.9 - Gestational [-induced] hypertension without significant proteinuria, unspecified trimester (ICD-10) Eating disorder ?F50.9 - Eating disorder, unspecified (ICD-10) Migraines ?G43.909 - Migraine, unspecified, not intractable, without status migrainosus (ICD-10) Granulocytosis ?D72.828 - Other elevated white blood cell count (ICD-10) Surgical History Status post vaginal delivery [place] teeth extracted ?K08.409 - Partial loss of teeth, unspecified cause, unspecified class (ICD- 10) Family History Paternal Grandmother Breast cancer Father Autism Social History Narrative: SOCIAL Education: trade 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 They occasionally have his 7 and 4 year olds as well. Pets: none Abuse: Denies past/present Special Diet: Denies Ok with a blood transfusion: yes Culture or faith beliefs: denies RISK FACTORS Exercise Times/wk: Just chasing my children. Encouraged walks. Depression/Anxiety: feeling good, denies concerns DUNIA: 0 PHQ 9: 2 Seat Belt Use: Routinely Smoking: Denies past/present Alcohol/day: Denies while Caffeine: 1-2 per day Drug Use: Occasional THC use. Plans on stopping in the 2nd trimester as she has in the past. Chicken Pox: vaccinated MRSA: Denies What is your current living situation?: I presently have a place to live Problems where you live: water leaks Problems where you live details: recently bought a house In the past 12 months, utilities in danger of being shut off: yes In past 12 months, lack of transportation kept you from medical appts, meetings, work, or getting things needed for daily living: no In the past 12 mos, have been you worried that your food would run out before you had money to buy more?: sometimes true In the past 12 mos, the food you bought just didn't last and you didn't have money to buy more?: sometimes true Smoking Status: Never smoker Do you use any of these nicotine containing products: None Second hand tobacco smoke exposure: No How often do you have a drink containing alcohol: never How often do you have six or more drinks on one occasion: Never AUDIT-C Alcohol total score: 0 Non-prescribed substance use: denies use How often does anyone, including family, friends and others, physically hurt you : never How often does anyone, including family, friends and others, insult or talk down to you: never How often does anyone, including family, friends and others, threaten you with harm: never How often does anyone, including family, friends and others, scream or curse at you: never Little interest or pleasure in doing things: not at all Feeling down, depressed, or hopeless: not at all Meds Home Medications and Allergies Home Medications Medication Instructions Recorded Confirmed Type docosahexaenoic acid 200 mg 1 mg PO QDAY 04/06/23 10/29/23 History capsule ( DHA) Allergies Allergy/AdvReac Type Severity Reaction Status Date / Time No Known Allergies Allergy Verified 10/29/23 12:48 Results Labs Labs: Laboratory Results - last 24 hr 11/04/23 11/04/23 07:29 08:06 WBC 14.19 H RBC 4.28 Hgb 10.7 L Hct 34.0 MCV 79 L MCH 25 L MCHC 32 RDW Coeff of Ivon 16.0 H Plt Count 250 Neut % (Auto) 79.2 H Lymph % (Auto) 13.5 L Greeley % (Auto) 6.6 Eos % (Auto) 0.2 Baso % (Auto) 0.1 Neut # (Auto) 11.20 H Lymph # (Auto) 1.90 Greeley # (Auto) 0.90 Eos # (Auto) 0.00 Baso # (Auto) 0.00 Abs Immat Gran (auto) 0.10 Imm/Tot Granulo (auto) 0.4 Ur Drug Screen Comment See Note Vital Signs Vital Signs: Last Vital Signs Temp 98.2 F 11/04/23 07:39 Pulse 96 11/04/23 08:16 Resp 16 11/04/23 07:39 BP 124/76 11/04/23 08:16 Pulse Ox 100 11/04/23 08:14 Anesthesia Procedures Epidural Insertion Patient Location: OB Start Time: 07:45 Stop Time: 08:16 Start Date: 11/04/23 Stop Date: 11/04/23 Reason for Block: procedure for pain Patient Position: sitting Performed By: Alexandro Pryor Preanesthetic Checklist: IV checked, risks and benefits discussed, monitors and equipment checked, pre-op evaluation, timeout performed and anesthesia consent Prep: chlorhexidine gluconate Monitoring: blood pressure monitoring, continuous pulse oximetry and heart rate Approach: midline Vertebral Space: lumbar (1-5) Epidural Technique: COLIN saline Needle Type: Tuohy needle Injection Technique: continuous catheter Needle gauge: 17 Needle Length (cm): 10 cm Needle Insertion Depth (cm): 7 Catheter Gauge: 19 Catheter Type: multi-orifice Catheter at skin depth (cm): 13 Test Dose Result: negative and lidocaine 1.5% with epinephrine 1 to 200,000
[2023-11-04] MEDS: PHENYLEPHRINE 100 MCG/ML SYRINGE IVP (08:20)
[2023-11-04 08:24] LABS: Amphetamine Screen Urine Negative (Negative); Barbiturate Screen Urine Negative (Negative); Benzodiazepines Screen Urine Negative (Negative); Cannabinoid Screen Urine Negative (Negative); Cocaine Screen Urine Negative (Negative); Methadone Screen Urine Negative (Negative); Methamphetamines Screen Urine Negative (Negative); Opiate Screen Urine Negative (Negative); Oxycodone Screen Urine Negative (Negative); Phencyclidine Screen Urine Negative (Negative); Tricyclic Antidepressant Urine Negative (Negative)
[2023-11-04] MEDS: LACTATED RINGERS 1000 ML 1,000 ML 300 ML IV (08:30)
--- NOTE | 2023-11-04 09:24 | PM.OBPNL ---
Objective Vital Signs: Last Vital Signs Temp 98.2 F 11/04/23 07:39 Pulse 86 11/04/23 09:15 Resp 16 11/04/23 07:39 BP 112/63 11/04/23 09:15 Pulse Ox 97 11/04/23 09:21
[2023-11-04] MEDS: CEFAZOLIN 2 GM INJ IVP (09:30)
[2023-11-04] MEDS: AZITHROMYCIN 500 MG in 0.9 % SODIUM CHLORIDE 250 ml 250 ML 255 MG IVPB (09:39)
[2023-11-04] MEDS: LACTATED RINGERS 1000 ML 1,000 ML 125 ML IV (10:25)
--- NOTE | 2023-11-04 10:27 | PM.OBPNL ---
Documented by User: Marissa Justin 11/04/23 10:43 Subjective Narrative: At 0816 OB was called for concern of FHT decelerations to the 70s. SVE 5cm. Pt was repositioned hands and knee. AROM with FSE with return of small amount of meconium. FHT recovered with moderate variability. Baseline 120-130. At 0908, another FHT decelerations was noted. SVE- 6/80/-1. Pt was again repositioned hands and knee. OB was again notified for concern for prolonged decelerations to the 100s. consulted and consented pt for primary . Pt was transferred to the OR at 0923. Objective Vital Signs: Last Vital Signs Temp 98.2 F 11/04/23 07:39 Pulse 86 11/04/23 09:15 Resp 16 11/04/23 07:39 BP 112/63 11/04/23 09:15 Pulse Ox 97 11/04/23 09:21 Assessment Status: Category ll Documented by User: Tamika Guan CNM 11/04/23 14:00 Subjective Date Seen: 11/04/23 Plan Plan: Care assumed by MD provider for primary delivery for distress. Remained with patient for support until after delivery of the baby.
--- NOTE | 2023-11-04 10:33 | P.OBPRC_ITS ---
Procedure Date of procedure: 11/04/23 Pre-op diagnosis: 40 weeks gestational age, non-reassuring heart tones remote from delivery Procedure Done: Global Will [facility] bill your pro fee for this procedure?: Yes Blood Loss Measurement Type: QBL Bakri Used: No IV fluids (mL): 1,200 Urine Output (mL): 400 Surgeon: Kavita Murdock MD Anesthesia Type: Spinal Findings: Liveborn female , thick meconium with staining of fetus, membranes and placenta Normal uterus, bilateral fallopian tubes and ovaries Procedure Name: Primary delivery Procedure Description: Patient was taken to the operating room with IV running. She received cefazolin and azithromycin in preoperative prophylaxis. Spinal anesthesia was administered. Linn catheter was inserted. She was prepped and draped in the usual sterile fashion. Anesthesia was tested and found to be adequate. A low-transverse skin incision was made with a scalpel and carried through to the underlying layer of fascia with the scalpel. The subcutaneous fat was dissected off the underlying fascia with Bovie and blunt dissection. The fascia was nicked in the midline with a scalpel, and this incision was extended laterally with scissors. The rectus muscles were in the midline. Peritoneum was identified and entered bluntly. Bovie was used to widen this opening laterally. Donato O retractor was inserted and tightened down, providing excellent visualization of the lower uterine segment. The bladder reflection was found to have advanced along the lower uterine segment. A bladder flap was created with a combination of sharp and blunt dissection. Low-transverse uterine incision was made with a scalpel. Incision was widened bluntly with return of thick meconium. The 's head was grasped through the hysterotomy in direct OP position and elevated to the hysterotomy. The remainder of the body delivered without incident with the help of fundal pressure. No nuchal cord was noted. Cord was clamped and cut after 30 seconds. Infant was handed off to attending pediatrics provider and nurses. The placenta was delivered with gentle traction on the cord. The uterus was cleaned of all clots and debris with the dry lap pad. The hysterotomy was reapproximated with 0 Vicryl in a running, locked fashion. Second layer of the same suture was used in imbricating fashion to obtain hemostasis. An area of ongoing oozing was noted at the right hysterotomy margin, addressed with an additional [id number] stitch with 0 vicryl. Excellent hemostasis was noted. The adnexa were examined and noted to be normal in appearance. The cul-de-sac and gutters were cleansed with dampened laparotomy sponge, removing any further clots and debris. The Donato O retractor was removed. The hysterotomy was reexamined and found to be hemostatic. Ephraim applied. The rectus muscles were examined and electrocautery was utilized for hemostasis as needed. The fascia was reapproximated with 0 Vicryl in a running fashion. Subcutaneous fat was irrigated and Bovie used on oozing vessels. The subcutaneous fat did not require closure. The skin was closed with a subcuticular stitch of 3-0 monocryl. Surgical glue was applied above this. Patient tolerated procedure well was taken to recovery area in stable condition. Surgical debrief was completed. details: - Liveborn female fetus - weight: 2065g - APGARs were 8 and 9 at 1 and 5 minutes respectively Pathology: specimen obtained, sent to pathology Surgery Debrief Performed: Yes Condition: stable Disposition: floor
--- NOTE | 2023-11-04 11:04 | W.ANESCHARGE ---
Anesthesia Charges Start Date/Time Anesthesia Start Date: 11/04/23 Anesthesia Start Time: 09:25 Stop Date/Time Anesthesia Stop Date: 11/04/23 Anesthesia Stop Time: 10:54 Summary Emergency: MDA
--- NOTE | 2023-11-04 11:07 | W.PM.NB ---
Nerve Block Nerve Block Time Seen by Provider: 10:45 Date Seen: 11/04/23 Type of block requested by surgeon for post-operative analgesia: TAP Side: bilateral Time out performed: Yes Verification of patient name: Yes Verification of date of : Yes Site marking: site marked Name of person performing procedure: Justin Continuous monitoring Was continuous monitoring of O2 sat, B/P, color television console monitor, recorded every 15 minutes?: Yes Procedure Checklist: sterile prep, needles and gloves Ultrasound guided. Images saved: Yes Medications given in 5ml increments after negative aspiration: Marcaine %: 0.25 mL: 30 Needle gauge: 20 and Exparel mL: 10 Patient tolerated procedure well: Yes Additional comments: Needle noted between internal oblique and transversus abdominus. Local spread visualized Block Charges Block Charge (with Pro Fee): TAP Bilateral Use of Ultrasound Machine for Block: Yes- US Guidance/pain block
--- NOTE | 2023-11-04 11:07 | W.ANESCHARGE ---
Anesthesia Charges Start Date/Time Anesthesia Start Date: 11/04/23 Anesthesia Start Time: 09:25 Stop Date/Time Anesthesia Stop Date: 11/04/23 Anesthesia Stop Time: 10:54 Summary Emergency: [employer]
--- NOTE | 2023-11-04 16:15 | P.OBCN_ITS ---
OB - CN: HPI Date of Consult Time Seen by Provider: 09:10 Date Seen: 11/04/23 Patient: [facility] Patient Consult date: 11/04/23 Requesting Physician: Masoud Garza CNM Primary Care Provider: Not a Local Provider Consult Narrative Narrative: The patient is a 23 year old G 5 P 2 at 40 weeks gestation that was admitted to the Center on 11/04/23 for spontaneous onset of labor. course is complicated by history of gHTN, THC use in , Chiari malformation. I was alerted at approximately 0820 of a prolonged deceleration shortly after epidural placement. I presented to the bedside, where her primary provider Tamika Guan CNM was completing AROM and FSE placement with patient in hands- knees. She notes patient is 5cm dilated, with small return of meconium stained fluid with FSE placement. Tracing briefly reviewed, revealing a 7 minute long deceleration to a triston of 70bpm. I explained our concern for wellbeing in the setting of a prolonged deceleration to Ms. Tuttle, where Code Oc was called. Upon placement of the FSE, heart rate was noted to be in the 120s and rising. Code White was called off. Both Tamika and myself discussed implications of the prolonged deceleration with Shakila, where we explained that so long as status recovers appropriately and remains stable that she is a candidate to continue efforts toward vaginal delivery. Care was resumed by ISAMAR service. FHR was subsequently category 1 with baseline of 130bpm, moderate josé manuel iability, accelerations present. At approximately 0910, I was again requested to Ms. Tuttle' room. She had an additional prolonged deceleration to a triston of 70bpm with slow recovery to FHR baseline. She was again in hand-knees position to allow for recovery. Tamika Guan CNM repeated cervical exam, where she was now noted to be 6cm dilated. I explained my recommendation to proceed with primary delivery in the setting of recurrent prolonged decelerations with slow return to baseline remote from delivery. Patient expressed understanding, OR team notified. We thoroughly discussed risks of surgery including bleeding, infection, damage to surrounding structures. Written consent obtained. History History 5 Elective abortions 1 Para 3 Spontaneous abortions 1 Hx # Term Pregnancies 2 Ectopic pregnancies Hx # Pregnancies Multiple births Number of Living Children 2 Past Pregnancies Del. Date GA/Weeks Outcome Route wt Inf Gender Labor Lgth Anesthesia Location Provider [facility] 04/19/18 40 live - full term vaginal delivery 7 lb 8 oz Femal e 21 epidural [place] 03/28/22 40 live - full term vaginal delivery 8 lb Female 23 epidural [facility] Blood type: A (+) positive GBS status: negative OB Labs: Lab Assessment Start: 11/04/23 06:48 Freq: ONCE Status: Cancelled Protocol: PC.OBGBS Activity Type Activity Date Activity User E-sign Co-sign Detail Recorded Client Recorded Date Recorded By Document 11/04/23 06:48 DESSELLIEM [id number] 11/04/23 06:51 DESSELLIEM 11/04/23 06:48 Lab Assessment GBS Status negative GBS Additional Criteria None No Treatment Needed OK Are Labs Available Yes Maternal Blood Type A Maternal RH Factor Positive Evaluate Maternal Rubella Immune Status Immune Hepatitis B Surface Antigen Negative Maternal HIV Status Negative Maternal Syphillis (RPR) Status Negative 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 - Anemia of the puerperium (ICD-10) Gestational hypertension ?O13.9 - Gestational [-induced] hypertension without significant proteinuria, unspecified trimester (ICD-10) Eating disorder ?F50.9 - Eating disorder, unspecified (ICD-10) Migraines ?G43.909 - Migraine, unspecified, not intractable, without status migrainosus (ICD-10) Granulocytosis ?D72.828 - Other elevated white blood cell count (ICD-10) Surgical History Status post vaginal delivery Slick teeth extracted ?K08.409 - Partial loss of teeth, unspecified cause, unspecified class (ICD- 10) Family History Paternal Grandmother Breast cancer Father Autism Social History (Reviewed 10/15/23 @ 12:42 by YESICA Hernandez Narrative: SOCIAL Education: trade 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 They occasionally have his 7 and 4 year olds as well. Pets: none Abuse: Denies past/present Special Diet: Denies Ok with a blood transfusion: yes Culture or zoroastrianism beliefs: denies RISK FACTORS Exercise Times/wk: Just chasing my children. Encouraged walks. Depression/Anxiety: feeling good, denies concerns DUNIA: 0 PHQ 9: 2 Seat Belt Use: Routinely Smoking: Denies past/present Alcohol/day: Denies while Caffeine: 1-2 per day Drug Use: Occasional THC use. Plans on stopping in the 2nd trimester as she has in the past. Chicken Pox: vaccinated MRSA: Denies What is your current living situation?: I presently have a place to live Problems where you live: water leaks Problems where you live details: recently bought a house In the past 12 months, utilities in danger of being shut off: yes In past 12 months, lack of transportation kept you from medical appts, meetings, work, or getting things needed for daily living: no In the past 12 mos, have been you worried that your food would run out before you had money to buy more?: never true In the past 12 mos, the food you bought just didn't last and you didn't have money to buy more?: never true Smoking Status: Never smoker Do you use any of these nicotine containing products: None Second hand tobacco smoke exposure: No How often do you have a drink containing alcohol: never How often do you have six or more drinks on one occasion: Never AUDIT-C Alcohol total score: 0 Non-prescribed substance use: denies use How often does anyone, including family, friends and others, physically hurt you : never How often does anyone, including family, friends and others, insult or talk down to you: never How often does anyone, including family, friends and others, threaten you with harm: never How often does anyone, including family, friends and others, scream or curse at you: never Little interest or pleasure in doing things: not at all Feeling down, depressed, or hopeless: not at all Meds Home Medications and Allergies Home Medications Medication Instructions Recorded Confirmed Type docosahexaenoic acid 200 mg 1 mg PO QDAY 04/06/23 11/04/23 History capsule ( DHA) Allergies Allergy/AdvReac Type Severity Reaction Status Date / Time No Known Allergies Allergy Verified 10/29/23 12:48 OB - H&P: Exam Physical Exam: Vital signs: Temp Pulse Resp BP Pulse Ox O2 Del Method 97.9 F 92 16 119/72 96 Room Air 11/04/23 16:07 11/04/23 16:07 11/04/23 16:07 11/04/23 16:07 11/04/23 16:07 11/04/23 16:07 OB - Results Labs Labs: Short CBC 11/04/23 Range/Units 07:29 WBC 14.19 H (4.50-11.00) K/uL Hgb 10.7 L (12.0-16.0) gm/dL Hct 34.0 (33.0-51.0) % Plt Count 250 (140-440) K/uL OB - CN: A/P Assessment and Plan (1) Pain during labor: Status: Acute (2) Marijuana use during : Status: Acute (3) History of gestational hypertension: Status: Acute Plan Ms. Tuttle is a 23yo admitted by CNM service for ROSALBA at 40w1d GA complicated by meconium stained fluid, history of gHTN, THC use in . Ob consult requested in the setting of recurrent prolonged decelerations. Patient is 6cm dilated, with two prolonged declerations to a triston of 70bpm in the last hour with slow return to baseline. Plan to proceed with primary delivery. - Written consent for primary delivery obtained - Plan perioperative ancef and azithromycin - BT A+ - GBS negative - Pediatrics to attend delivery for unscheduled C/s and meconium
[2023-11-04] MEDS: KETOROLAC 30 MG/ML inj IVP ×2 (16:24→23:02)
[2023-11-05 06:31] LABS: Hemoglobin* 8.9 gm/dL (12.0-16.0)
[2023-11-05] MEDS: KETOROLAC 30 MG/ML inj IVP (06:38)
[2023-11-05 07:41] VITALS: BP 94/58; PULSE 84; RESP 16; TEMP 36.8; O2SAT 97
[2023-11-05 07:45] VITALS: RESP 16
--- NOTE | 2023-11-05 08:21 | PM.OBDSVD1 ---
Documented by User: Marissa Cliffordadonay 11/05/23 08:47 DS: Providers Provider Time Seen by Provider: 08:21 Date Seen: 11/05/23 Date of admission: 11/04/23 07:08 Primary care physician: Not a Local Provider Admitting Clinician: Tamika Guan CNM Consults: 11/04/23 06:42 Consult to Sales Support Specialist [CONS] Routine Comment: Reason for Consult:: Substance Abuse Screening 11/04/23 08:02 Consult to Sales Support Specialist [CONS] Routine Comment: Reason for Consult:: Substance Abuse Screening 11/04/23 10:20 Consult to Physician [CONS] Routine Comment: Consulting Provider: Katlin Murdock Has provider been notified: Yes 11/04/23 19:03 Consult to Sales Support Specialist [CONS] Routine Comment: Reason for Consult:: Social Service Consult Attending Physician on discharge: Katelynn Aquino CNM Date of Discharge: 11/05/23 DS: Diagnosis Discharge Diagnosis (1) care following delivery: Status: Acute (2) Marijuana use during : Status: Acute (3) History of gestational hypertension: Status: Acute (4) Anemia of mother in , delivered with condition: Status: Acute Exam Const: Vital Signs, click to edit/add: Vital Signs - 24 hr 11/04/23 08:22 11/04/23 08:24 11/04/23 08:25 Temperature Pulse Rate 88 100 Pulse Rate [Pulse Oximeter] Respiratory Rate Blood Pressure 122/82 129/73 Blood Pressure [Le ft Arm] Pulse Oximetry 98 Oxygen Delivery Me thod 11/04/23 08:26 11/04/23 08:28 11/04/23 08:30 Temperature Pulse Rate 96 115 H 93 Pulse Rate [Pulse Oximeter] Respiratory Rate Blood Pressure 120/81 118/61 123/56 L Blood Pressure [Le ft Arm] Pulse Oximetry 91 97 Oxygen Delivery Me thod 11/04/23 08:32 11/04/23 08:34 11/04/23 08:35 Temperature Pulse Rate 93 82 Pulse Rate [Pulse Oximeter] Respiratory Rate Blood Pressure 117/57 L 115/60 Blood Pressure [Le ft Arm] Pulse Oximetry 95 Oxygen Delivery Me thod 11/04/23 08:36 11/04/23 08:40 11/04/23 08:43 Temperature Pulse Rate Pulse Rate [Pulse Oximeter] Respiratory Rate Blood Pressure Blood Pressure [Le ft Arm] Pulse Oximetry 94 95 94 Oxygen Delivery Me thod 11/04/23 08:45 11/04/23 08:50 11/04/23 08:56 Temperature Pulse Rate 96 104 H Pulse Rate [Pulse Oximeter] Respiratory Rate Blood Pressure 118/78 103/54 L Blood Pressure [Le ft Arm] Pulse Oximetry 95 93 Oxygen Delivery Me thod 11/04/23 09:06 11/04/23 09:11 11/04/23 09:15 Temperature Pulse Rate 91 86 Pulse Rate [Pulse Oximeter] Respiratory Rate Blood Pressure 107/56 L 112/63 Blood Pressure [Le ft Arm] Pulse Oximetry 100 Oxygen Delivery Me thod 11/04/23 09:16 11/04/23 09:21 11/04/23 10:55 Temperature Pulse Rate 76 Pulse Rate [Pulse Oximeter] Respiratory Rate 16 Blood Pressure 106/69 Blood Pressure [Le ft Arm] Pulse Oximetry 100 97 100 Oxygen Delivery Me od Room Air 11/04/23 11:00 11/04/23 11:05 11/04/23 11:10 Temperature 97.6 F Pulse Rate 67 76 76 Pulse Rate [Pulse Oximeter] Respiratory Rate 16 16 16 Blood Pressure 107/70 115/73 111/73 Blood Pressure [Le ft Arm] Pulse Oximetry 100 99 100 Oxygen Delivery Me od Room Air 11/04/23 11:15 11/04/23 11:20 11/04/23 11:25 Temperature 97.4 F L Pulse Rate 79 74 71 Pulse Rate [Pulse Oximeter] Respiratory Rate 16 16 16 Blood Pressure 111/67 110/66 108/54 L Blood Pressure [Le ft Arm] Pulse Oximetry 99 97 98 Oxygen Delivery Me od Room Air Room Air 11/04/23 11:38 11/04/23 11:41 11/04/23 11:56 Temperature 98.0 F Pulse Rate Pulse Rate [Pulse Oximeter] 76 77 Respiratory Rate 16 16 16 Blood Pressure Blood Pressure [Le ft Arm] 103/68 108/72 Pulse Oximetry 98 100 Oxygen Delivery Me thod 11/04/23 12:11 11/04/23 12:26 11/04/23 12:34 Temperature Pulse Rate Pulse Rate [Pulse Oximeter] 71 72 Respiratory Rate 16 16 16 Blood Pressure Blood Pressure [Le ft Arm] 113/75 103/64 Pulse Oximetry 100 100 Oxygen Delivery Me thod 11/04/23 12:41 11/04/23 12:57 11/04/23 13:11 Temperature Pulse Rate Pulse Rate [Pulse Oximeter] 68 78 86 Respiratory Rate 16 16 16 Blood Pressure Blood Pressure [Le ft Arm] 113/61 113/65 109/68 Pulse Oximetry 99 100 100 Oxygen Delivery Me thod 11/04/23 13:33 11/04/23 13:34 11/04/23 15:17 Temperature Pulse Rate Pulse Rate [Pulse Oximeter] 77 Respiratory Rate 16 16 16 Blood Pressure Blood Pressure [Le ft Arm] 119/73 Pulse Oximetry 100 Oxygen Delivery Me thod 11/04/23 15:34 11/04/23 16:04 11/04/23 16:07 Temperature 97.9 F Pulse Rate Pulse Rate [Pulse Oximeter] 92 Respiratory Rate 16 16 Blood Pressure Blood Pressure [Le ft Arm] 119/72 Pulse Oximetry 99 96 Oxygen Delivery Me thod Room Air 11/04/23 17:28 11/04/23 17:34 11/04/23 18:34 Temperature Pulse Rate Pulse Rate [Pulse Oximeter] Respiratory Rate 16 16 16 Blood Pressure Blood Pressure [Le ft Arm] Pulse Oximetry Oxygen Delivery Me thod 11/04/23 20:02 11/04/23 20:12 11/04/23 23:12 Temperature 98.1 F 97.6 F Pulse Rate Pulse Rate [Pulse Oximeter] 91 86 Respiratory Rate 16 16 16 Blood Pressure Blood Pressure [Le ft Arm] 127/69 115/68 Pulse Oximetry 96 97 Oxygen Delivery Me thod Room Air 11/05/23 07:41 11/05/23 07:45 Temperature 98.2 F Pulse Rate Pulse Rate [Pulse Oximeter] 84 Respiratory Rate 16 16 Blood Pressure Blood Pressure [Le ft Arm] 94/58 L Pulse Oximetry 97 Oxygen Delivery Me thod Common normals: no apparent distress and oriented x3 Chest: Common normals: inspection of chest normal Resp: Common normals: normal respiratory effort GI: Common normals: soft to palpation Palpation: soft Extremity: Common normals: normal to inspection Neuro: Common normals: oriented x3 Psych: Common normals: mental status grossly normal OB - DS: Summary Hospital Course Hospital Course: The patient is a 23 year old G 5 P 2 at 40.2 weeks gestation that was admitted to the Center on 11/04/23 for spontaneous onset of labor. course is complicated by history of gHTN, THC use in , Chiari malformation. She had a primary delivery due to persistent category II tracing. She delivered a viable female infant who is transferred to an outside NICU facility. She plans on breast/bottle feeding.On Post-op day 1, pt has expressed the desire to discharge home to be with her infant. She reports feeling well. Her incisional pain is well controlled. She is passing gas and has tolerated solid meals. She is ambulating and voiding with no difficulty, Her incisional dressing is clean and dry. Dressing will be removed before discharge. Fundus is firm at umbilicus and lochia is scant the patient has done well. Her vitals have remained stable. Current hg of 8.9 from 10.7 on admission. Pt will be sent home with iron. Reviewed discharge instruction including warning signs to seek eminent medical attention. Pt verbalized understanding and denied concerns. Peripartum Data Infant delivery method: Primary C/S; Labored Procedures: Procedures Operation Date: 11/04/23 10:15 Actual Procedure Side Surgeon p Section Katlin Murdock MD [place] Infant Gender: Female Status at Discharge Functional status at discharge: independent ambulation Overall status at discharge: patient is back to baseline Time Spent with Patient Time attestation: Total time spent providing and/or coordinating discharge services: Discharge Plan Discharge Disposition: Home, Self-Care Date of Admission: 11/04/23 07:08 Attending Provider on Discharge: Katelynn Aquino Consulting Providers: Katlin Murdock Primary Care Provider: Provider,Not a Local Condition: Stable Anticipated Discharge Date/Time: 11/05/23 12:00 Discharge Medications: New acetaminophen 500 mg Tablet 1,000 mg PO Q6H PRN (Reason: pain/fever) Qty: 0 0RF ferrous sulfate 325 mg (65 mg iron) Tablet 325 mg PO Q48H 90 Days Qty: 45 0RF docusate sodium 100 mg Capsule 100 mg PO DAILY Qty: 90 0RF ibuprofen 600 mg Tablet 600 mg PO Q6H PRN (Reason: Pain) Qty: 60 0RF oxycodone 5 mg Tablet 5 - 10 mg PO Q4H MDD 6 PRN (Reason: Pain) Qty: 15 0RF Continued DHA 200 mg capsule 1 mg PO QDAY Discontinued aspirin [Adult Aspirin Regimen] 81 mg tablet,delayed release (DR/EC) 81 mg PO QDAY Qty: 100 3RF Discharge Orders: Discharge Order (Routine); Ordered 11/05/23 Ordered By: Katelynn Aquino Patient Education: OB Over the Counter Medication Information, OB /Breast Feeding Additional Instructions: Follow up in 2 weeks and in 6 weeks Activity Level: Activity as Tolerated Discharge Diet: Regular Follow Up [facility] Documented by User: Katelynn Aquino CNM 11/05/23 11:11 DS: Providers Provider Attending Physician on discharge: Katelynn Aquino CNM DS: Diagnosis Discharge Diagnosis (1) care following delivery: Status: Acute (2) Marijuana use during : Status: Acute (3) History of gestational hypertension: Status: Acute (4) Anemia of mother in , delivered with condition: Status: Acute Exam GI: Inspection: incision (Dressing in place; clean, dry, and intact) OB - DS: Summary Hospital Course Hospital Course: The patient is a 23 year old G 5 P 2 at 40.2 weeks gestation that was admitted to the Center on 11/04/23 for spontaneous onset of labor. course is complicated by history of gHTN, THC use in , Chiari malformation. She had a primary delivery due to persistent category II tracing. She delivered a viable female infant who is transferred to an outside NICU facility. She plans on breast/bottle feeding.On Post-op day 1, pt has expressed the desire to discharge home to be with her . She reports feeling well. Her incisional pain is well controlled. She is passing gas and has tolerated solid meals. She is ambulating and voiding with no difficulty, Her incisional dressing is clean and dry. Dressing will be removed before discharge. Fundus is firm at umbilicus and lochia is scant the patient has done well. Her vitals have remained stable. Current hg of 8.9 from 10.7 on admission. Pt will be sent home with iron. Reviewed discharge instruction including warning signs to seek eminent medical attention. Pt verbalized understanding and denied concerns. Problems: Anemia plan: Discharge home. [facility] in N[facility] at [facility]. Follow up in 2 weeks and 6 weeks. , may see if needed I,?Katelynn Aquino, MODESTO, ISAMAR, was present for visit and have reviewed and agree with documentation by the Certified Nurse Midwifery Student. Discharge Plan Discharge Disposition: Home, Self-Care Date of Admission: 11/04/23 07:08 Attending Provider on Discharge: Katelynn Aquino Consulting Providers: Katlin Murdock Primary Care Provider: Provider,Not a Local Condition: Stable Anticipated Discharge Date/Time: 11/05/23 12:00 Discharge Medications: New acetaminophen 500 mg Tablet 1,000 mg PO Q6H PRN (Reason: pain/fever) Qty: 0 0RF ferrous sulfate 325 mg (65 mg iron) Tablet 325 mg PO Q48H 90 Days Qty: 45 0RF docusate sodium 100 mg Capsule 100 mg PO DAILY Qty: 90 0RF ibuprofen 600 mg Tablet 600 mg PO Q6H PRN (Reason: Pain) Qty: 60 0RF oxycodone 5 mg Tablet 5 - 10 mg PO Q4H MDD 6 PRN (Reason: Pain) Qty: 15 0RF Continued DHA 200 mg capsule 1 mg PO QDAY Discontinued aspirin [Adult Aspirin Regimen] 81 mg tablet,delayed release (DR/EC) 81 mg PO QDAY Qty: 100 3RF Discharge Orders: Discharge Order (Routine); Ordered 11/05/23 Ordered By: Katelynn Aquino Patient Education: OB Over the Counter Medication Information, OB /Breast Feeding Additional Instructions: Follow up in 2 weeks and in 6 weeks Activity Level: Activity as Tolerated Discharge Diet: Regular Follow Up Appointments: [facility] [Provider Group] Forms: [employer]! Messenger Info Instructions
[2023-11-05 08:30] VITALS: RESP 16
--- NOTE | 2023-11-05 08:39 | PM.OBDSVD1 ---
DS: Providers Provider Date Seen: 03/29/22 Date of admission: 11/04/23 07:08 Primary care physician: Not a Local Provider Admitting Clinician: Tamika Guan CNM Consults: 11/04/23 06:42 Consult to Home Health Care Worker [CONS] Routine Comment: Reason for Consult:: Substance Abuse Screening 11/04/23 08:02 Consult to Home Health Care Worker [CONS] Routine Comment: Reason for Consult:: Substance Abuse Screening 11/04/23 10:20 Consult to Physician [CONS] Routine Comment: Consulting Provider: Katlin Murdock Has provider been notified: Yes 11/04/23 19:03 Consult to Home Health Care Worker [CONS] Routine Comment: Reason for Consult:: Social Service Consult Attending Physician on discharge: Masoud Garza CNM Date of Discharge: 03/29/22 Exam Const: Vital Signs, click to edit/add: Vital Signs - 24 hr 11/04/23 08:40 11/04/23 08:43 11/04/23 08:45 Temperature Pulse Rate 96 Pulse Rate [Pulse Oximeter] Respiratory Rate Blood Pressure 118/78 Blood Pressure [Le ft Arm] Pulse Oximetry 95 94 95 Oxygen Delivery Me thod 11/04/23 08:50 11/04/23 08:56 11/04/23 09:06 Temperature Pulse Rate 104 H 91 Pulse Rate [Pulse Oximeter] Respiratory Rate Blood Pressure 103/54 L 107/56 L Blood Pressure [Le ft Arm] Pulse Oximetry 93 Oxygen Delivery Me thod 11/04/23 09:11 11/04/23 09:15 11/04/23 09:16 Temperature Pulse Rate 86 Pulse Rate [Pulse Oximeter] Respiratory Rate Blood Pressure 112/63 Blood Pressure [Le ft Arm] Pulse Oximetry 100 100 Oxygen Delivery Me thod 11/04/23 09:21 11/04/23 10:55 11/04/23 11:00 Temperature Pulse Rate 76 67 Pulse Rate [Pulse Oximeter] Respiratory Rate 16 16 Blood Pressure 106/69 107/70 Blood Pressure [Le ft Arm] Pulse Oximetry 97 100 100 Oxygen Delivery Me thod Room Air 11/04/23 11:05 11/04/23 11:10 11/04/23 11:15 Temperature 97.6 F Pulse Rate 76 76 79 Pulse Rate [Pulse Oximeter] Respiratory Rate 16 16 16 Blood Pressure 115/73 111/73 111/67 Blood Pressure [Le ft Arm] Pulse Oximetry 99 100 99 Oxygen Delivery Me thod Room Air 11/04/23 11:20 11/04/23 11:25 11/04/23 11:38 Temperature 97.4 F L Pulse Rate 74 71 Pulse Rate [Pulse Oximeter] Respiratory Rate 16 16 16 Blood Pressure 110/66 108/54 L Blood Pressure [Le ft Arm] Pulse Oximetry 97 98 Oxygen Delivery Me thod Room Air Room Air 11/04/23 11:41 11/04/23 11:56 11/04/23 12:11 Temperature 98.0 F Pulse Rate Pulse Rate [Pulse Oximeter] 76 77 71 Respiratory Rate 16 16 16 Blood Pressure Blood Pressure [Le ft Arm] 103/68 108/72 113/75 Pulse Oximetry 98 100 100 Oxygen Delivery Me thod 11/04/23 12:26 11/04/23 12:34 11/04/23 12:41 Temperature Pulse Rate Pulse Rate [Pulse Oximeter] 72 68 Respiratory Rate 16 16 16 Blood Pressure Blood Pressure [Le ft Arm] 103/64 113/61 Pulse Oximetry 100 99 Oxygen Delivery Me thod 11/04/23 12:57 11/04/23 13:11 11/04/23 13:33 Temperature Pulse Rate Pulse Rate [Pulse Oximeter] 78 86 77 Respiratory Rate 16 16 16 Blood Pressure Blood Pressure [Le ft Arm] 113/65 109/68 119/73 Pulse Oximetry 100 100 100 Oxygen Delivery Me thod 11/04/23 13:34 11/04/23 15:17 11/04/23 15:34 Temperature Pulse Rate Pulse Rate [Pulse Oximeter] Respiratory Rate 16 16 16 Blood Pressure Blood Pressure [Le ft Arm] Pulse Oximetry Oxygen Delivery Me thod 11/04/23 16:04 11/04/23 16:07 11/04/23 17:28 Temperature 97.9 F Pulse Rate Pulse Rate [Pulse Oximeter] 92 Respiratory Rate 16 16 Blood Pressure Blood Pressure [Le ft Arm] 119/72 Pulse Oximetry 99 96 Oxygen Delivery Me thod Room Air 11/04/23 17:34 11/04/23 18:34 11/04/23 20:02 Temperature 98.1 F Pulse Rate Pulse Rate [Pulse Oximeter] 91 Respiratory Rate 16 16 16 Blood Pressure Blood Pressure [Le ft Arm] 127/69 Pulse Oximetry 96 Oxygen Delivery Me thod Room Air 11/04/23 20:12 11/04/23 23:12 11/05/23 07:41 Temperature 97.6 F 98.2 F Pulse Rate Pulse Rate [Pulse Oximeter] 86 84 Respiratory Rate 16 16 16 Blood Pressure Blood Pressure [Le ft Arm] 115/68 94/58 L Pulse Oximetry 97 97 Oxygen Delivery Me thod 11/05/23 07:45 Temperature Pulse Rate Pulse Rate [Pulse Oximeter] Respiratory Rate 16 Blood Pressure Blood Pressure [Le ft Arm] Pulse Oximetry Oxygen Delivery Me thod OB - DS: Summary Hospital Course Hospital Course: The patient is a 23 year old G [] P [] at [] weeks gestation that was admitted to the Center on 11/04/23 for []. She had an [uncomplicated/complicated] [vaginal/] delivery. She delivered a viable [male/female] . She is [breast/bottle] feeding. the patient has done well. Peripartum Data Procedures: Procedures Operation Date: 11/04/23 10:15 Actual Procedure Side Surgeon p Section Katlin Murdock MD Gender: Female Time Spent with Patient Time attestation: Total time spent providing and/or coordinating discharge services: Discharge Plan Discharge Date of Admission: 11/04/23 07:08 Attending Physician on Admission: Masoud Garza Attending Provider on Discharge: Katelynn Aquino Consulting Providers: Katlin Murdock Primary Care Provider: Provider,Not a Local Discharge Medications: No Action DHA 200 mg capsule 1 mg PO QDAY aspirin [Adult Aspirin Regimen] 81 mg tablet,delayed release (DR/EC) 81 mg PO QDAY Qty: 100 3RF Follow Up Appointments: Provider,Not a Local [Primary Care Provider] -
--- NOTE | 2023-11-05 10:51 | PC.SOCIAL ---
Discharge planning: order worker spoke to [facility] in regard to the referral/consult for this pt. Sarah stated that the consult was not needed. Social work to follow-up if needed.
[2023-11-05] MEDS: FERROUS SULFATE 325 MG TABLET PO (11:01)
[2023-11-05] MEDS: DOCUSATE SODIUM 100 MG CAPSULE PO (11:02)
[2023-11-05] MEDS: ACETAMINOPHEN 500 MG TABLET 1000 MG PO (11:02)
[2023-11-05] MEDS: OXYCODONE 5 MG TABLET PO (11:02)
[2023-11-06 03:34] LABS: Rapid Plasma Reagin (RPR) Non Reactive (Non Reactive)
== END 2023-11-05 11:15 | disposition home or self-care (01) | DRG 787 ==
LOC: OB OUT 07:09 → OB 07:09
PROVIDERS: Obstetrics & Gynecology; Admitting Provider Advanced Practice Midwife; Visit Provider Advanced Practice Midwife
PROC: 10D00Z1 Extraction of Products of Conception, Low, Open Approach (ICD-10-PCS; CPT 59514; principal; 2023-11-04 10:00)
DX: O48.0 Post-term pregnancy (principal); O76 Abnormality in fetal heart rate and rhythm complicating labor and delivery; O99.324 Drug use complicating childbirth; F12.90 Cannabis use, unspecified, uncomplicated; O13.4 Gestational [pregnancy-induced] hypertension without significant proteinuria, complicating childbirth; O77.0 Labor and delivery complicated by meconium in amniotic fluid; G89.18 Other acute postprocedural pain; O90.81 Anemia of the puerperium; D64.9 Anemia, unspecified; Z3A.40 40 weeks gestation of pregnancy; Z37.0 Single live birth
CPT/HCPCS: 01961; 01967; 01968; 36415; 64488; 76942; 80306; 85018; 85025; 86592; 86850; 86900; 86901; 88307; 94761; 99140; A9270; C9290; J0456; J0665; J0690; J1100; J1885; J2210; J2274; J2371; J2405; J2590; J2795; J3010; J7050; J7120

== ENCOUNTER 2023-11-05 17:04 | Emergency (ER) | payer MEDICAID, SELFPAY ==
[2023-11-05 17:15] VITALS: BP 149/97; PULSE 102; RESP 18; TEMP 36.6; O2SAT 96; BMI 32.9
--- NOTE | 2023-11-05 17:30 | US_ITS ---
Patient: LEON PAYNE Facility:?[facility] Patient ID:?[id number] Site Patient ID:?[id number]. Site :?[id number] Study:?US-Extremity Left LEV-11/05/2023 6:27:15 PM Ordering Physician:MOE GERMAN Final Report: INDICATION: Swelling . TECHNIQUE: Ultrasound venous duplex lower left extremity. Compression venous exam was performed using contreras-scale, color Doppler, and spectral Doppler analysis. COMPARISON: None. FINDINGS: Deep veins: Sonographic imaging demonstrates the left common femoral, deep femoral, superficial femoral, popliteal, posterior tibial, peroneal and the contralateral right common femoral veins to be fully compressible with normal color Doppler blood flow. Superficial veins: Greater saphenous vein is fully compressible. No popliteal cyst. IMPRESSION: No deep venous thrombosis in the evaluated veins of the left lower extremity. Dictated by Eleuterio Woods MD @ 11/05/2023 7:12:21 PM Signed by:?Eleuterio Woods MD @11/05/2023 7:12:21 PM (Electronic Signature)
--- NOTE | 2023-11-05 17:33 | ED.GENADULT ---
HPI - General Adult General Chief complaint: Hypertension Stated complaint: Post delivery swelling in legs, short of breath Time Seen by Provider: 11/05/23 17:18 History of Present Illness HPI narrative: This 23-year-old female delivered a child yesterday by and was discharged this morning. She returns now stating that she has some increased swelling in her legs and reports pain in her left calf. She does not have a prior history of blood clot. She does not report any shortness of breath. She arrives with elevated blood pressure at initial reading of 149/97. Subsequent readings 10 and 20 minutes later showed levels in the systolic value of around 135. The patient does not report any significant headache and has not had any visual changes. Related Data Home Medications Medication Instructions Recorded Confirmed docosahexaenoic acid 200 mg 1 mg PO QDAY 04/06/23 11/04/23 capsule ( DHA) Previous Rx's Medication Instructions Recorded acetaminophen 500 mg tablet 1,000 mg (2 x 500 mg) PO Q6H PRN 11/05/23 pain/fever #0 tabs docusate sodium 100 mg capsule 100 mg PO DAILY #90 caps 11/05/23 ferrous sulfate 325 mg (65 mg 325 mg PO Q48H 90 days #45 tabs 11/05/23 iron) tablet ibuprofen 600 mg tablet 600 mg PO Q6H PRN Pain #60 tabs 11/05/23 oxycodone 5 mg tablet 5 - 10 mg (1 - 2 x 5 mg) PO Q4H 11/05/23 PRN Pain #15 tabs Allergies Allergy/AdvReac Type Severity Reaction Status Date / Time No Known Allergies Allergy Verified 10/29/23 12:48 Review of Systems Status of ROS: Reports: 10 or more systems reviewed and unremarkable except as noted in History and below Narrative: Constitutional: No fevers, no weight gain or loss. Eyes: No discharge. No vision changes. HENT: No congestion, no sore throat, no ear pain. Cardiovascular: No chest pain, no palpitations. Respiratory: No shortness of breath, no wheezes, no cough. Gastrointestinal: No vomiting, no diarrhea. Abdominal pain from recent section. Genitourinary: No dysuria, no hematuria. Musculoskeletal: Normal range of motion. Skin: No rashes, no pruritis. Neurological: No dizziness, weakness, sensory change, speech change. Endo/Heme/Allergies: No bruising or bleeding. No polydipsia. Pysch: no suicidality, no anxiety, no insomnia. All other systems reviewed and are negative. 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 They occasionally have his 7 and 4 year olds as well. Pets: none Abuse: Denies past/present Special Diet: Denies Ok with a blood transfusion: yes Culture or buddhism beliefs: denies RISK FACTORS Exercise Times/wk: Just chasing my children. Encouraged walks. Depression/Anxiety: feeling good, denies concerns DUNIA: 0 PHQ 9: 2 Seat Belt Use: Routinely Smoking: Denies past/present Alcohol/day: Denies while Caffeine: 1-2 per day Drug Use: Occasional THC use. Plans on stopping in the 2nd trimester as she has in the past. Chicken Pox: vaccinated MRSA: Denies What is your current living situation?: I presently have a place to live Problems where you live: water leaks Problems where you live details: recently bought a house In the past 12 months, utilities in danger of being shut off: yes In past 12 months, lack of transportation kept you from medical appts, meetings, work, or getting things needed for daily living: no In the past 12 mos, have been you worried that your food would run out before you had money to buy more?: never true In the past 12 mos, the food you bought just didn't last and you didn't have money to buy more?: never true Smoking Status: Never smoker Do you use any of these nicotine containing products: None Second hand tobacco smoke exposure: No How often do you have a drink containing alcohol: never How often do you have six or more drinks on one occasion: Never AUDIT-C Alcohol total score: 0 Non-prescribed substance use: denies use How often does anyone, including family, friends and others, physically hurt you: never How often does anyone, including family, friends and others, insult or talk down to you: never How often does anyone, including family, friends and others, threaten you with harm: never How often does anyone, including family, friends and others, scream or curse at you: never Little interest or pleasure in doing things: not at all Feeling down, depressed, or hopeless: not at all Exam Narrative: Exam Narrative: Constitutional: Well-developed, well-nourished, no acute distress. HEENT: Normocephalic, atraumatic. Neck: Normal range of motion. Nontender. Supple. Heart: Regular. No murmurs. Borderline tachycardia. Intact distal pulses. Lungs: Clear to auscultation. No chest discomfort. No wheezes, rhonchi, or rales. Abdomen: Normal bowel sounds. Nontender. No rebound tenderness. Genitalia: Deferred. Back: No midline tenderness. Normal range of motion. Extremities: Normal range of motion. No injury. No significant swelling or edema. Skin: Intact. No rash. Warm. No erythema or pallor. Neurologic: No altered sensation. No weakness. Alert and oriented. Psychiatric: No suicidality. No anxiety or depression. No insomnia. Nursing notes and vitals signs are reviewed. Const: Vital Signs, click to edit/add: Vital Signs - 24 hr 11/05/23 17:15 Temperature 98 F Pulse Rate [Pulse Oximeter] 102 H Respiratory Rate 18 Blood Pressure [Ri ght Upper Arm] 149/97 H Pulse Oximetry 96 Oxygen Delivery Me thod Room Air Course Vital Signs Vital signs: Initial Vital Signs Respiratory Effort Normal 11/05/23 17:14 Respiratory Depth Normal 11/05/23 17:14 Respiratory Pattern Normal 11/05/23 17:14 Vital Signs Temperature 98 F 11/05/23 17:15 Pulse Rate 102 H 11/05/23 17:15 Respiratory Rate 18 11/05/23 17:15 Blood Pressure 149/97 H 11/05/23 17:15 Pulse Oximetry 96 11/05/23 17:15 Oxygen Delivery Method Room Air 11/05/23 17:15 Temperature 98 F 11/05/23 17:15 Pulse Rate 102 H 11/05/23 17:15 Respiratory Rate 18 11/05/23 17:15 Blood Pressure 149/97 H 11/05/23 17:15 Pulse Oximetry 96 11/05/23 17:15 Oxygen Delivery Method Room Air 11/05/23 17:15 Medical Decision Making MDM Narrative Medical decision making narrative: This patient arrives with report of some pain in her left calf. An ultrasound of the left lower extremity is obtained and there is no evidence of deep venous thrombosis. The patient arrives with blood pressure that was elevated but repeat measures have all been in normal range. Her most recent blood pressure at the time a recheck to her just prior to departure showed a systolic value of 102. Labs are acquired and these do show some changes that could be typical for recent C section delivery. Her white count is a bit elevated at 14. Her hemoglobin is stable at 8.6. Liver enzymes are in normal range. Urinalysis is not showing any sign of infection or proteinuria. This patient is not showing any findings concerning for preeclampsia or hypertension. She is okay to be discharged home to continue current plans. Lab Data Labs: Lab Results 11/05/23 11/05/23 Range/Units 17:55 18:09 WBC 14.31 H (4.50-11.00) K/uL RBC 3.44 L (4.00-5.20) m/uL Hgb 8.6 L (12.0-16.0) gm/dL Hct 27.6 L (33.0-51.0) % MCV 80 (80-100) fL MCH 25 L (26-34) pg MCHC 31 L (32-36) gm/dL RDW Coeff of Ivon 16.1 H (11.5-15.5) % Plt Count 276 (140-440) K/uL Neut % (Auto) 75.6 H (42.0-72.0) % Lymph % (Auto) 15.4 L (20-44) % [place] % (Auto) 7.8 (0.0-11.0) % Eos % (Auto) 0.2 (0.0-7.0) % Baso % (Auto) 0.1 (0.0-3.0) % Neut # (Auto) 10.80 H (1.7-7.0) K/uL Lymph # (Auto) 2.20 (0.90-2.90) K/uL [place] # (Auto) 1.10 H (0.00-0.90) K/UL Eos # (Auto) 0.00 (0.00-0.50) K/uL Baso # (Auto) 0.00 (0.00-0.30) K/uL Abs Immat Gran (auto) 0.10 (0.00-0.30) K/uL Imm/Tot Granulo (auto) 0.9 % Sodium 136 (135-149) mmol/L Potassium 3.3 L (3.6-5.1) mmol/L Chloride 105 (96-114) mmol/L Carbon Dioxide 24 (20-32) mmol/L Anion Gap 7 (7-15) mEq/L BUN 11 (5-24) mg/dL Creatinine 0.5 (0.5-1.5) mg/dL Estimated Creat Clear 137.22 Estimated GFR 134 ml/min Glucose 85 (60-115) mg/dL Calcium 8.2 L (8.4-10.6) mg/dL Total Bilirubin 0.2 (0.1-1.5) mg/dL Direct Bilirubin 0.1 (0.0-0.5) mg/dL AST 24 (12-35) U/L ALT 18 (4-35) U/L Alkaline Phosphatase 109 (40-150) U/L Total Protein 5.9 L (6.0-8.3) g/dL Albumin 2.9 L (3.3-5.0) g/dL Urine Color Yellow (Yellow) Urine Appearance Clear (Clear) Urine pH 6.5 (5.0-8.5) Ur Specific [place] 1.010 (1.000-1.030) Urine Protein Negative (Negative) Urine Glucose (UA) Negative (Negative) Urine Ketones Negative (Negative) Urine Blood 3+ A (Negative) Urine Nitrite Negative (Negative) Urine Bilirubin Negative (Negative) Urine Urobilinogen 0.2 (0.2-1.0) Ur Leukocyte Esterase Trace A (Negative) Urine RBC 0-2 (0-2) Urine WBC 0-2 (0-5) Ur Squamous Epith Cells Few (None-Few) Urine Bacteria Few A (None) Discharge Plan Discharge Clinical Impression: care following delivery Patient Disposition: Home, Self-Care Condition: Stable Additional Instructions: Continue current plans. Follow up with MD as scheduled return if worsening. Prescriptions: No Action DHA 200 mg capsule 1 mg PO QDAY acetaminophen 500 mg Tablet 1,000 mg PO Q6H PRN (Reason: pain/fever) Qty: 0 0RF ferrous sulfate 325 mg (65 mg iron) Tablet 325 mg PO Q48H 90 Days Qty: 45 0RF docusate sodium 100 mg Capsule 100 mg PO DAILY Qty: 90 0RF ibuprofen 600 mg Tablet 600 mg PO Q6H PRN (Reason: Pain) Qty: 60 0RF oxycodone 5 mg Tablet 5 - 10 mg PO Q4H MDD 6 PRN (Reason: Pain) Qty: 15 0RF Follow Up/Referrals: Provider,Not a Local [Primary Care Provider] - Stand Alone Forms: Identifiedth Info Instructions
[2023-11-05 18:03] LABS: Basophils Percent Auto 0.1 % (0.0-3.0); Eosinophils Percent Auto 0.2 % (0.0-7.0); Hematocrit 27.6 % (33.0-51.0); Hemoglobin* 8.6 gm/dL (12.0-16.0); Immature Granulocytes Pct Auto 0.9 %; Lymphocytes Percent Auto 15.4 % (20-44); Mean Corpuscular HGB Conc 31 gm/dL (32-36); Mean Corpuscular Hemoglobin 25 pg (26-34); Mean Corpuscular Volume 80 fL (80-100); Monocytes Percent Auto 7.8 % (0.0-11.0); Neutrophils Percent Auto 75.6 % (42.0-72.0); Platelet Count* 276 K/uL (140-440); RDW Coefficient of Variation % 16.1 % (11.5-15.5); Red Blood Count 3.44 m/uL (4.00-5.20); White Blood Count* 14.31 K/uL (4.50-11.00)
[2023-11-05 18:17] LABS: Appearance Urine Clear (Clear); Bilirubin Urine Negative (Negative); Blood Urine 3+ (Negative); Color Urine Yellow (Yellow); Glucose Urine Negative (Negative); Ketones Urine Negative (Negative); Leukocyte Esterase Urine Trace (Negative); Nitrite Urine Negative (Negative); Protein Urine Negative (Negative); Urobilinogen Urine 0.2 (0.2-1.0); pH Urine 6.5 (5.0-8.5)
[2023-11-05 18:26] LABS: Albumin* 2.9 g/dL (3.3-5.0); Chloride* 105 mmol/L (96-114); Potassium* 3.3 mmol/L (3.6-5.1); Sodium* 136 mmol/L (135-149)
[2023-11-05 18:28] LABS: Creatinine* 0.5 mg/dL (0.5-1.5); Est. Creatinine Clearance* 137.22; Estimated Glomerular Filt Rate 134 ml/min
[2023-11-05 18:29] LABS: RBC Urine 0-2 (0-2); Squamous Epithelial Cell Urine Few (None-Few); WBC Urine 0-2 (0-5)
[2023-11-05 18:29] LABS: Alanine Aminotransferase* 18 U/L (4-35); Alkaline Phosphatase* 109 U/L (40-150); Anion Gap 7 mEq/L (7-15); Aspartate Amino Transferase* 24 U/L (12-35); Bilirubin Direct* 0.1 mg/dL (0.0-0.5); Bilirubin Total* 0.2 mg/dL (0.1-1.5); Blood Urea Nitrogen* 11 mg/dL (5-24); Carbon Dioxide* 24 mmol/L (20-32); Glucose* 85 mg/dL (60-115); Slide Review Reflex No; Total Protein* 5.9 g/dL (6.0-8.3)
[2023-11-05 18:30] LABS: Calcium* 8.2 mg/dL (8.4-10.6)
[2023-11-05 18:30] LABS: Bacteria Urine Few
== END 2023-11-05 19:08 | disposition home or self-care (01) ==
PROVIDERS: Emergency Provider Emergency Medicine Emergency Medical Services
DX: M79.662 Pain in left lower leg (principal)
CPT/HCPCS: 36415; 80048; 80076; 81001; 85025; 87086; 93971; 99282; 99285

== ENCOUNTER 2024-02-11 10:50 | Outpatient (CLI) | payer MEDICAID, SELFPAY | END 2024-02-11 10:51 | disposition home or self-care (01) | LOC: NFLDREF 02-15 18:21 | PROVIDERS: PCP Registered Nurse; Referring Provider Registered Nurse; Visit Provider Registered Nurse | DX: R39.9 Unspecified symptoms and signs involving the genitourinary system (principal); N39.0 Urinary tract infection, site not specified; N30.00 Acute cystitis without hematuria | CPT/HCPCS: 87086; 87186 ==

== ENCOUNTER 2025-01-20 13:50 | Outpatient (CLI) | payer MEDICAID, SELFPAY | END 2025-01-20 13:51 | disposition home or self-care (01) | PROVIDERS: PCP Registered Nurse; Visit Provider Advanced Practice Midwife | DX: O99.03 Anemia complicating the puerperium (principal); D64.9 Anemia, unspecified; R53.83 Other fatigue | CPT/HCPCS: 82728; 84443 ==

== ENCOUNTER 2025-02-02 07:56 | Outpatient (CLI) | payer MEDICAID, SELFPAY ==
--- NOTE | 2025-02-02 08:15 | CRLHL7_ITS ---
For Patients: As a result of the Cures Act, medical imaging exams and procedure reports are released immediately into your electronic medical record. You may view this report before your referring provider. If you have questions, please contact your health care provider. RIGHT BREAST ULTRASOUND, 02/02/2025 CLINICAL HISTORY: Right breast granulocytosis mastitis. COMPARISON: 09/20/2021. TECHNIQUE: Real-time ultrasound imaging of RIGHT breast with imaging documentation. FINDINGS: Targeted ultrasound right breast 2-4 o`clock 5 cm from the nipple. No evidence of recurrent fluid collection or abscess. Normal breast tissue. IMPRESSION: No suspicious findings. No evidence of recurrent abscess. RECOMMENDATIONS: Clinical follow-up. Results and recommendations were discussed with the patient at the time of the exam. A lay language report of this examination will be provided to the patient. BI-RADS Category 1: Negative Dictated by Magdy Rodriguez MD @ 02/02/2025 9:01:41 AM MARQUIS/milly DW/Dictated by: Magdy Rodriguez MD @ 02/02/2025 9:01:00 AM (Electronically Signed)
== END 2025-02-02 07:57 | disposition home or self-care (01) ==
LOC: US 07:57
PROVIDERS: PCP Registered Nurse; Visit Provider Advanced Practice Midwife
DX: N61.21 Granulomatous mastitis, right breast (principal); D72.828 Other elevated white blood cell count; Z87.2 Personal history of diseases of the skin and subcutaneous tissue
CPT/HCPCS: 76642